=== PATIENT | male | born 1950 | race Caucasian/White ===

== ENCOUNTER 2021-04-25 02:58 | Inpatient (IN) | payer OTHER, SELFPAY ==
[2021-04-25] VITALS (25 sets, daily range): BP systolic 111–176; BP diastolic 51–98; PULSE 76–106; RESP 11–23; TEMP 36.4–36.7; O2SAT 94–100; BMI 17.8
--- NOTE | ~2021-04-25 | MR_ITS ---
EXAMINATION: MR brain/brain stem wo con DATE: 04/25/2021 17:04 INDICATION: Vertigo. TECHNIQUE: Magnetic resonance imaging (MRI) of the brain and brainstem was performed without intraven ous contrast. Sequences included sagittal and axial T1-weighted FSE, axial diffusion-weighted FS EPI, axial T2*-weighted GRE, axial T2-weighted FLAIR Propeller, and axial T2-weighted Propeller. Apparent diffusion coefficient (ADC) maps were created. COMPARISON: Brain MRI 08/24/2015, head CT 04/25/2021 FINDINGS: There is an old infarct involving the right lentiform nucleus, posterior limb right interna l capsule, and the right frontoparietal herrera radiata. There are scattered areas of nonspecific incr eased T2-weighted signal intensity in the cerebral white matter and ping, which is within normal limi ts for the patient's age. There is no intracranial hemorrhage, acute infarction, or abnormal intracra nial mass lesion. The ventricles are normal in size. There is a mucous retention cyst in right maxill ghislaine sinus. The orbits are normal. There is a small left mastoid effusion. IMPRESSION: 1. Old infarct involving right lentiform nucleus, posterior limb right internal capsule, and the righ t frontoparietal herrera radiata. Reviewed, dictated and finalized at location A. IMPRESSION: 1. Old infarct involving right lentiform nucleus, posterior limb right internal capsule, and the right frontoparietal herrera radiata.
--- NOTE | ~2021-04-25 | CT_ITS ---
EXAMINATION: CT brain wo con INDICATION: Head injury COMPARISON: 08/24/2015 TECHNIQUE: Standard unenhanced head CT. The dose-length product (DLP) was 605.33 mGy-cm. The mA was a djusted according to patient size. Iterative reconstruction technique was employed. FINDINGS: There is no acute intraparenchymal hemorrhage. No evidence of mass lesion. No evidence of a cute infarction. There is a chronic infarct involving the right lentiform nucleus and right frontopar ietal herrera radiata. An old infarct is also noted in the left caudate nucleus. There is mild periven tricular and subcortical hypodensity probably related to small vessel ischemic disease. There is mild prominence of the sulci and ventricles related to cerebral atrophy. Intracranial calcified cerebral atherosclerosis is noted. There are no extra-axial collections. There is no mass effect or midline sh ift. The orbits and soft tissues are unremarkable. There is mild mucosal thickening of the paranasal sinuses. An air-fluid level is present in the right maxillary sinus. IMPRESSION: 1. Areas of prior infarction without acute intracranial abnormality. 2. Age related findings. Reviewed, dictated and finalized at location A.
--- NOTE | ~2021-04-25 | US_ITS ---
EXAMINATION: US abdomen complete EXAM DATE: 05/01/2021 08:27 INDICATION: Abdominal pain/UTI . TECHNIQUE: Multiple grayscale and Doppler images of the complete abdomen were obtained (by a technolo gist who performed the scan) and subsequently reviewed. There is no prior study for comparison. FINDINGS: Limited exam due to patient positioning, bowel gas. Aorta not visualized. Visualized portion IVC is patent. The pancreatic head and body are normal in appearance. The pancreatic tail is not visualized. The liver has normal echogenicity and contour. There are no focal liver lesions identified. There is no evidence of intrahepatic biliary duct dilation. Portal venous flow was seen in the hepatopedal , normal direction and has normal Doppler waveform. Common bile duct measures 4 mm, which is normal. The gallbladder wall is normal in thickness, with ex pected amount of distention. No sonographic evidence of pericholecystic fluid. There is no cholelit hiases. Technologist performing exam reports patient did not demonstrate sonographic Chung's sign. Please note that this sign is less reliable in patients who have received pain medication. Right kidney: There is normal contour and echogenicity. It measures 9.6 x 6.0 x 6.1 centimeters. T here are no focal renal lesions identified. Mild hydronephrosis. Left kidney: There is normal contour and echogenicity. It measures 12.1 x 4.7 x 6.4 centimeters. T here are no focal renal lesions identified. Minimal left hydronephrosis. Unable to visualize the spleen. Bladder is moderately distended with layering proteinaceous material inside, could be blood products or debris. A right ureteral jet was identified, could not definitivel y identify a left ureteral jet. Not sure if this is significant given the bladder debris along the ur eterovesicular junctions. IMPRESSION: 1. Mild right, minimal left hydronephrosis. 2. Proteinaceous bladder dependent debris or blood products. Reviewed, dictated and finalized at location A.
--- NOTE | 2021-04-25 03:12 | ECG_ITS ---
Measurements Intervals Smiley Rate: 98 P: 70 WA: 194 QRS: -30 QRSD: 130 T: 38 QT: 366 QTc: 468 Interpretive Statements SINUS RHYTHM POSSIBLE LEFT ATRIAL ENLARGEMENT RIGHT BUNDLE BRANCH BLOCK BASELINE ARTIFACT- I, II, III, AVR, AVL, AVF, V1, V3 ABNORMAL ECG Electronically Signed On 04-25-2021 8:49:12 CDT by Giancarlo Lopez D.O.
[2021-04-25] MEDS: MECLIZINE HCL 25 MG TABLET PO ×2 (04:05→18:12)
[2021-04-25 04:09] LABS: Basophils Percent Auto 0.5 % (0.2-1.2); Eosinophils Absolute Auto 0.1 K/mm3 (0-0.3); Eosinophils Percent Auto 1.2 % (0-4.4); Hematocrit 38.9 % (42.0-52.0); Hemoglobin 13.1 g/dL (14.0-18.0); Immature Granulocyte Absolute 0.02 K/mm3 (0.00-0.031); Immature Granulocyte Percent A 0.2 % (0-0.5); Lymphocytes Percent Auto 30.6 % (18.3-44.2); Mean Corpuscular HGB Conc 33.7 g/dl (32-36); Mean Corpuscular Hemoglobin 31.8 pg (26-34); Mean Corpuscular Volume 94.4 fl (80-100); Mean Platelet Volume 9.4 fl (7.4-10.4); Monocytes Absolute Auto 0.8 K/mm3 (0.1-0.6); Monocytes Percent Auto 9.4 % (2.6-8.5); Neutrophils Absolute Auto 5.1 K/mm3 (1.3-6.7); Neutrophils Percent Auto 58.1 % (45.5-73.1); Platelet Count Result 240 k/mm3 (150-375); Red Blood Count 4.12 M/mm3 (4.6-6.20); Red Cell Distribution Width 12.7 % (11.5-14.5); White Blood Count 8.8 K/mm3 (4.5-10.0)
[2021-04-25 04:16] LABS: Add Urine Microscopic? YES; Appearance Urine Cloudy (Clear); Bacteria Urine Trace /hpf; Bilirubin Urine Negative (Negative); Blood Urine 2+ (Negative); Color Urine Yellow (Yellow); Glucose Urine UA Negative (Negative); Ketones Urine Trace mg/dL (Negative); Leukocyte Esterase Ur 3+ LEU/UL (Negative); Mucus Urine Rare /lpf; Nitrate Urine Negative (Negative); Protein Urine 2+ mg/dL (Negative); RBC Urine 21-50 /hpf (0-2); Specific Grav Ur 1.016 (1.001-1.035); Squamous Epithelial Cell Urine Occasional /hpf (Few); Urobilinogen Urine Negative mg/dL (<2.0); WBC Clumps Urine Present /HPF; WBC Urine >75 /hpf
[2021-04-25 04:21] LABS: Alanine Aminotransferase 20 U/L (4-50); Albumin Level 4.1 g/dL (3.5-5.1); Alkaline Phosphatase 58 U/L (38-126); Anion Gap 6 mmol/L (8-16); Aspartate Amino Transferase 27 U/L (17-59); Bilirubin,Total 0.7 mg/dL (0.2-1.3); Blood Urea Nitrogen 31 mg/dL (9-20); Calcium 10.2 mg/dL (8.4-10.2); Carbon Dioxide 31 mmol/L (22-30); Chloride 102 mmol/L (98-107); Estimated CRCL calculation 70 ml/min; Estimated Glomerular Filt Rate > 60; Glucose 106 mg/dL (65-110); Potassium 3.9 mmol/L (3.4-5.0); Sodium 139 mmol/L (137-145)
--- NOTE | 2021-04-25 04:39 | ED.GENADULT ---
HPI - General Adult General Chief complaint: Dizziness Stated complaint: dizzy when he rolls over Time Seen by Provider: 04/25/21 03:23 History of Present Illness HPI narrative: Patient 71-year-old gentleman who presents to emergency department with chief complaint of dizziness. Patient reports that several days ago he fell struck his head had no loss of consciousness was doing okay and today rolled over and started having a sense of his whole body spinning. Patient states symptoms are improved whenever he is not moving and reports worsened with turning his head from side to side. Patient states CABG called EMS the patient reports he normally gets around using a wheelchair patient does live independently. Related Data Home Medications Medication Instructions Recorded Confirmed amlodipine 04/25/21 atorvastatin 04/25/21 clopidogrel 04/25/21 gabapentin 04/25/21 losartan 04/25/21 metformin mg 04/25/21 ropinirole mg 04/25/21 mavleys-pvfupxqg-ahfqtt comb 04/25/21 exturrd-qcgu-smtmc-oreg-capryl cap PO 04/25/21 zolpidem 04/25/21 Allergies Allergy/AdvReac Type Severity Reaction Status Date / Time No Known Drug Allergies Allergy Unknown Other Verified 04/25/21 03:18 Review of Systems Review of Systems: A 10 system review of systems was completed on the patient and is negative except for what is stated in the HPI. Nursing and ancillary documentation was reviewed. [facility] Social History Social History Smoking status: Never smoker Alcohol intake: never Comments Prior history of stroke uses a wheelchair Exam Narrative: GENERAL: Well-appearing, well-nourished, and in no acute distress. HEAD: Normocephalic, atraumatic. EYES: PERRLA and EOMI. ENT: Nares clear, no rhinorrhea or epistaxis. Mucous membranes moist. NECK: Supple. CHEST: Clear to auscultation. No respiratory distress. HEART: Regular rate and rhythm. No murmur heard. Normal peripheral pulses. ABDOMEN: Soft, nontender, nondistended, normal active bowel sounds. EXTREMITIES: Normal range of motion. No edema. SKIN: Warm, dry, no rash. NEURO: No focal deficits. Has a baseline weakness on the left side alert and oriented x3. PSYCH: Normal mood and affect. Course Course Emergency Course: Patient was given Antivert which did help him somewhat although he still having rotational vertigo symptoms whenever he turns his head. The patient was found to have a significant UTI. The patient was given a dose of Rocephin in the ER CT head showed no evidence of acute abnormalities. Given the patient is still symptomatic and has a significant UTI the case will be discussed with the hospitalist for possible admission. Vital Signs Vital signs: Vital Signs Temperature 36.4 C 04/25/21 03:02 Pulse Rate 97 04/25/21 03:02 Respiratory Rate 20 04/25/21 03:02 Blood Pressure 153/88 H 04/25/21 03:02 Pulse Oximetry 99 04/25/21 03:02 Temperature 36.4 C 04/25/21 03:02 Pulse Rate 98 04/25/21 04:15 Respiratory Rate 23 H 04/25/21 04:45 Blood Pressure 165/90 H 04/25/21 04:31 Pulse Oximetry 100 04/25/21 04:31 Medical Decision Making Vital Signs Vital Signs: Vital Signs Temperature 36.4 C 04/25/21 03:02 Pulse Rate 97 04/25/21 03:02 Respiratory Rate 20 04/25/21 03:02 Blood Pressure 153/88 H 04/25/21 03:02 Pulse Oximetry 99 04/25/21 03:02 Temperature 36.4 C 04/25/21 03:02 Pulse Rate 98 04/25/21 04:15 Respiratory Rate 23 H 04/25/21 04:45 Blood Pressure 165/90 H 04/25/21 04:31 Pulse Oximetry 100 04/25/21 04:31 Lab Data Result diagrams: 04/25/21 04:04 04/25/21 04:04 Labs: Lab Results 04/25/21 04/25/21 04/25/21 Range/Units 04:04 04:04 04:04 WBC 8.8 (4.5-10.0) K/mm3 RBC 4.12 L (4.6-6.20) M/mm3 Hgb 13.1 L (14.0-18.0) g/dL Hct 38.9 L (42.0-52.0) % MCV 94.4 (80-100) fl MCH 31.
--- NOTE | 2021-04-25 05:42 | PC.NURSE ---
Patient was assisted to sit up in bed to test if he was dizzy. Patient stated the dizziness was still there, had not improved. ERP aware.
--- NOTE | 2021-04-25 08:09 | ADMGEN ---
Addendum entered by Loida Rose RN 04/25/21 08:45: pt has medical cards and clothing at bedside Original Note: This patient, Parish Keita, was admitted to 3 [facility] Surg Room 317-02. Patient/family oriented to hospital policies and general routines including ID bracelet, bed and alarms, visiting hours, pain management, procedures, bathroom and other care routines, personal items, smoking policy, room service/diet, and visiting hours. PT REQUIRED TRANSFER ASSIT X2 FROM STRETCHER TO BED. Information on how to activate the Rapid Response Team has been discussed. Patient/Family are encouraged to report perceived risks to care and to ask questions if they do not understand what they are told or what they should do.
[2021-04-25] MEDS: SODIUM CHLORIDE 0.9% IV 1,000 ML 125 ML IV CONT (08:56)
--- NOTE | 2021-04-25 09:13 | PM.IMHP ---
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 Patient had suffered a fall while he was trying to transfer from bed to chair heat his head on the way down but there was no loss of consciousness he managed to called EMS who came to the house and place him back in the chair there was no noted injury at that time and patient's vitals were within normal limits as well. The patient was brought to the emergency room via EMS after while he was reaching down while in bed bed trying to place is urine on the floor had a sudden onset of violent vertigo he trying is staying stable by repositioning back in bed but when he tried to move again had the same episode. Patient states that has been quite fine has had no issues lately no loss of consciousness, no syncope ,no near-syncope, no nausea, no vomiting, no fever, no chills, no rigors, no cough, no sputum production, he did notice increased frequency urinating. Preliminary workup was significant for urinalysis with numerous wbc's, a CT of the head was significant for old stroke, rest of workup was pretty much unrevealing. Review of Systems Review of Systems: Fall, vertigo, urinary frequency. Constitutional: Constitutional: Denies chills, Denies fatigue, Denies fever(s), Denies lethargy, Denies malaise and Denies weakness Eyes: Comments: Patient only see samm ENT: Denies dysphagia, Reports vertigo, Denies ear discharge, Denies headache(s), Denies nasal congestion, Denies nasal discharge, Denies nasal obstruction and Denies odynophagia Cardiovascular: Cardiovascular: Denies irregular heart rhythm, Denies lightheadedness, Denies radiating jaw, neck or arm pain, Denies palpitations, Denies dyspnea, Denies dyspnea on exertion and Denies orthopnea Respiratory: Respiratory: Denies cough and Denies dyspnea Gastrointestinal: Gastrointestinal: Denies abdominal pain, Denies dyspepsia, Denies heartburn, Denies diarrhea, Denies nausea and Denies vomiting Genitourinary: Genitourinary: Reports urinary frequency Musculoskeletal: Musculoskeletal: Denies arthralgias Integumentary/Breasts: Skin/Breast: Reports system reviewed and no additional complaints, except as docu Neurologic: Reports vertigo Psychiatric: Psychiatric: Reports no additional psychiatric complaints Endocrine: Endocrine: Reports no additional endocrine complaints Hematologic/Lymphatic: Hematologic/Lymphatic: Reports no additional hematologic/lymphatic complaints Allergic/Immunologic: Allergic/Immunologic: Reports no additional allergic/immunologic complaints [facility] Social History Social History Smoking status: Never smoker Alcohol intake: never Substance use: never Substance use type: does not use Spiritual care concerns: No Meds Home Medications and Allergies Home Medications Medication Instructions Recorded Confirmed Type amlodipine [Norvasc] 10 mg PO DAILY 04/25/21 04/25/21 History atorvastatin 20 mg PO DAILY 04/25/21 04/25/21 History cefdinir 300 mg PO Q12H #20 cap 04/25/21 Rx clopidogrel 75 mg PO DAILY 04/25/21 04/25/21 History gabapentin 300 mg PO DAILY 04/25/21 04/25/21 History losartan 100 mg PO DAILY 04/25/21 04/25/21 History meclizine 25 mg PO TID PRN #30 tablet 04/25/21 Rx metformin 500 mg PO DAILY 04/25/21 04/25/21 History ropinirole 2 mg PO DAILY 04/25/21 04/25/21 History mdsxfsm-znzcczua-qmuhdq comb 1 tab-cap PO DAILY 04/25/21 04/25/21 History rnpwwlk-iafw-cpeqt-oreg-capryl 1 cap PO 04/25/21 History zolpidem 5 mg PO
[2021-04-25] MEDS: SIMETHICONE 80 MG TAB.CHEW PO (21:09)
[2021-04-26] MEDS: SODIUM CHLORIDE 0.9% IV 1,000 ML 125 ML IV CONT (00:35)
[2021-04-26] MEDS: ACETAMINOPHEN 325 MG TABLET 650 MG PO (00:41)
[2021-04-26] MEDS: HYOSCYAMINE SULFATE 0.125 MG TABLET PO (00:41)
[2021-04-26 05:41] VITALS: BP 161/78; PULSE 84; RESP 18; TEMP 36.1; O2SAT 98
[2021-04-26] MEDS: SIMETHICONE 80 MG TAB.CHEW PO ×2 (05:48→18:28)
[2021-04-26 07:50] LABS: Glucose Point of Care 108 mg/dl (65-105)
[2021-04-26] MEDS: amLODIPine BESYLATE 5 MG TABLET 10 MG PO (09:35)
[2021-04-26] MEDS: ATORVASTATIN 20 MG TABLET PO (09:36)
[2021-04-26] MEDS: GABAPENTIN 300 MG CAPSULE PO (09:36)
[2021-04-26] MEDS: CLOPIDOGREL BISULFATE 75 MG TABLET PO (09:36)
[2021-04-26] MEDS: rOPINIRole HCL 1 MG TABLET 2 MG PO (09:36)
[2021-04-26] MEDS: MECLIZINE HCL 25 MG TABLET PO ×2 (09:36→18:34)
[2021-04-26] MEDS: LOSARTAN POTASSIUM 100 MG TABLET PO (09:36)
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
[2021-04-26 10:09] VITALS: BMI 17.8
[2021-04-26 12:11] LABS: Glucose Point of Care 135 mg/dl (65-105)
[2021-04-26 15:51] VITALS: BP 79/50; PULSE 75; RESP 16; TEMP 36.7; O2SAT 96
[2021-04-26 16:56] LABS: Glucose Point of Care 186 mg/dl (65-105)
[2021-04-26 18:39] VITALS: BP 92/52
[2021-04-26 19:30] VITALS: BP 98/58
[2021-04-26] MEDS: ZOLPIDEM TARTRATE (*CRX) 5 MG TABLET PO (21:04)
[2021-04-26 21:50] LABS: Glucose Point of Care 124 mg/dl (65-105)
[2021-04-26 22:00] VITALS: BP 102/61; PULSE 62; RESP 18; TEMP 36.3; O2SAT 96
[2021-04-27] MEDS: SIMETHICONE 80 MG TAB.CHEW PO ×2 (01:36→08:20)
[2021-04-27] MEDS: SODIUM CHLORIDE 0.9% IV 1,000 ML 125 ML IV CONT ×2 (02:31→18:27)
[2021-04-27] MEDS: HYOSCYAMINE SULFATE 0.125 MG TABLET PO ×4 (03:45→23:36)
[2021-04-27 06:00] VITALS: BP 110/66; PULSE 62; RESP 16; TEMP 36.7; O2SAT 95
[2021-04-27 06:22] LABS: Basophils Absolute Auto 0.1 K/mm3 (0.0-0.1); Basophils Percent Auto 0.4 % (0.2-1.2); Eosinophils Absolute Auto 0.2 K/mm3 (0-0.3); Eosinophils Percent Auto 1.7 % (0-4.4); Hemoglobin 14.2 g/dL (14.0-18.0); Immature Granulocyte Absolute 0.05 K/mm3 (0.00-0.031); Immature Granulocyte Percent A 0.4 % (0-0.5); Lymphocytes Absolute Auto 3.17 K/mm3 (0.9-3.2); Lymphocytes Percent Auto 23.7 % (18.3-44.2); Mean Corpuscular Hemoglobin 31.2 pg (26-34); Mean Corpuscular Volume 94.5 fl (80-100); Mean Platelet Volume 9.9 fl (7.4-10.4); Monocytes Absolute Auto 1.1 K/mm3 (0.1-0.6); Monocytes Percent Auto 7.9 % (2.6-8.5); Neutrophils Absolute Auto 8.8 K/mm3 (1.3-6.7); Neutrophils Percent Auto 65.9 % (45.5-73.1); Platelet Count Result 263 k/mm3 (150-375); Red Blood Count 4.55 M/mm3 (4.6-6.20); Red Cell Distribution Width 12.6 % (11.5-14.5); White Blood Count 13.4 K/mm3 (4.5-10.0)
[2021-04-27 06:30] LABS: Alanine Aminotransferase 21 U/L (4-50); Albumin Level 3.8 g/dL (3.5-5.1); Alkaline Phosphatase 68 U/L (38-126); Anion Gap 11 mmol/L (8-16); Aspartate Amino Transferase 25 U/L (17-59); Bilirubin,Total 0.7 mg/dL (0.2-1.3); Blood Urea Nitrogen 22 mg/dL (9-20); Calcium 8.9 mg/dL (8.4-10.2); Carbon Dioxide 21 mmol/L (22-30); Chloride 110 mmol/L (98-107); Estimated CRCL calculation 83 ml/min; Estimated Glomerular Filt Rate > 60; Glucose 115 mg/dL (65-110); Magnesium 2.2 mg/dL (1.6-2.3); Potassium 4.2 mmol/L (3.4-5.0); Sodium 142 mmol/L (137-145)
[2021-04-27] MEDS: ACETAMINOPHEN 325 MG TABLET 650 MG PO (08:19)
[2021-04-27] MEDS: ENOXAPARIN 40 MG/0.4 ML SYRINGE SUB-Q (08:19)
[2021-04-27] MEDS: rOPINIRole HCL 1 MG TABLET 2 MG PO (08:20)
[2021-04-27] MEDS: GABAPENTIN 300 MG CAPSULE PO (08:20)
[2021-04-27] MEDS: MECLIZINE HCL 25 MG TABLET PO ×2 (08:20→18:26)
[2021-04-27] MEDS: ATORVASTATIN 20 MG TABLET PO (08:21)
[2021-04-27] MEDS: CLOPIDOGREL BISULFATE 75 MG TABLET PO (08:21)
[2021-04-27 08:43] LABS: Glucose Point of Care 118 mg/dl (65-105)
[2021-04-27 11:50] LABS: Glucose Point of Care 129 mg/dl (65-105)
--- NOTE | 2021-04-27 12:06 | PCOTNOTE ---
Patient refused OT evaluation this AM due to high pain and vertigo. He answered prompts related to prior level of function, yet declined any movement. OT evaluation to be attempted tomorrow 04/27/21.
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
[2021-04-27 14:00] VITALS: BP 153/76; PULSE 93; RESP 14; TEMP 36.6; O2SAT 96
[2021-04-27] MEDS: HYDROcodone/acetaminophen (*CRX) 5-325 MG TABLET 1 TAB PO ×2 (15:58→23:34)
[2021-04-27 17:20] LABS: Glucose Point of Care 170 mg/dl (65-105)
[2021-04-27] MEDS: amLODIPine BESYLATE 5 MG TABLET 10 MG PO (18:23)
[2021-04-27 21:42] VITALS: O2SAT 94
[2021-04-27 22:00] VITALS: BP 109/48; PULSE 81; RESP 99; TEMP 36.2; O2SAT 18
[2021-04-27 22:34] LABS: Glucose Point of Care 153 mg/dl (65-105)
[2021-04-28] MEDS: SODIUM CHLORIDE 0.9% IV 1,000 ML 125 ML IV CONT ×4 (02:24→21:11)
[2021-04-28 06:00] VITALS: BP 147/66; PULSE 102; RESP 20; TEMP 35.9; O2SAT 98
[2021-04-28 06:24] LABS: Basophils Absolute Auto 0.1 K/mm3 (0.0-0.1); Basophils Percent Auto 0.4 % (0.2-1.2); Eosinophils Absolute Auto 0.1 K/mm3 (0-0.3); Hematocrit 41.1 % (42.0-52.0); Hemoglobin 13.6 g/dL (14.0-18.0); Immature Granulocyte Absolute 0.05 K/mm3 (0.00-0.031); Immature Granulocyte Percent A 0.4 % (0-0.5); Lymphocytes Absolute Auto 2.16 K/mm3 (0.9-3.2); Lymphocytes Percent Auto 17.2 % (18.3-44.2); Mean Corpuscular HGB Conc 33.1 g/dl (32-36); Mean Corpuscular Hemoglobin 31.2 pg (26-34); Mean Corpuscular Volume 94.3 fl (80-100); Mean Platelet Volume 9.9 fl (7.4-10.4); Monocytes Absolute Auto 0.9 K/mm3 (0.1-0.6); Monocytes Percent Auto 7.1 % (2.6-8.5); Neutrophils Absolute Auto 9.3 K/mm3 (1.3-6.7); Neutrophils Percent Auto 73.9 % (45.5-73.1); Platelet Count Result 240 k/mm3 (150-375); Red Blood Count 4.36 M/mm3 (4.6-6.20); Red Cell Distribution Width 12.4 % (11.5-14.5); White Blood Count 12.5 K/mm3 (4.5-10.0)
[2021-04-28 06:34] LABS: Alanine Aminotransferase 25 U/L (4-50); Albumin Level 3.4 g/dL (3.5-5.1); Alkaline Phosphatase 57 U/L (38-126); Anion Gap 8 mmol/L (8-16); Aspartate Amino Transferase 25 U/L (17-59); Bilirubin,Total 0.5 mg/dL (0.2-1.3); Blood Urea Nitrogen 18 mg/dL (9-20); Calcium 8.2 mg/dL (8.4-10.2); Carbon Dioxide 22 mmol/L (22-30); Chloride 109 mmol/L (98-107); Estimated CRCL calculation 83 ml/min; Estimated Glomerular Filt Rate > 60; Glucose 138 mg/dL (65-110); Phosphorus 1.7 mg/dL (2.5-4.5); Potassium 4.2 mmol/L (3.4-5.0); Sodium 139 mmol/L (137-145)
[2021-04-28 07:44] LABS: Glucose Point of Care 123 mg/dl (65-105)
[2021-04-28 08:00] VITALS: PULSE 102; RESP 20; O2SAT 98
[2021-04-28] MEDS: SIMETHICONE 80 MG TAB.CHEW PO ×2 (08:01→16:56)
[2021-04-28] MEDS: ATORVASTATIN 20 MG TABLET PO (08:02)
[2021-04-28] MEDS: ENOXAPARIN 40 MG/0.4 ML SYRINGE SUB-Q (08:02)
[2021-04-28] MEDS: CLOPIDOGREL BISULFATE 75 MG TABLET PO (08:02)
[2021-04-28] MEDS: ONDANSETRON INJ 4 MG/2 ML VIAL IV PUSH (08:02)
[2021-04-28] MEDS: PROCHLORPERAZINE MALEATE 5 MG TABLET 10 MG PO (08:02)
[2021-04-28] MEDS: GABAPENTIN 300 MG CAPSULE PO (08:02)
[2021-04-28] MEDS: rOPINIRole HCL 1 MG TABLET 2 MG PO (08:02)
[2021-04-28] MEDS: TRIAMTERENE 37.5 MG/HCTZ 25 MG (MAXZIDE) TABLET 1 TAB PO (08:03)
[2021-04-28] MEDS: LOSARTAN POTASSIUM 100 MG TABLET PO (08:03)
[2021-04-28] MEDS: ALPRAZolam (*CRX) 0.125 MG TABLET PO (08:05)
[2021-04-28] MEDS: HYDROcodone/acetaminophen (*CRX) 5-325 MG TABLET 1 TAB PO ×2 (08:05→16:55)
[2021-04-28] MEDS: HYOSCYAMINE SULFATE 0.125 MG TABLET PO (08:06)
[2021-04-28] MEDS: MECLIZINE HCL 25 MG TABLET PO ×2 (09:00→16:55)
[2021-04-28] MEDS: amLODIPine BESYLATE 5 MG TABLET 10 MG PO (09:26)
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
[2021-04-28 11:51] LABS: Glucose Point of Care 136 mg/dl (65-105)
--- NOTE | 2021-04-28 12:44 | PCPTNOTE ---
attempted PT treatment, pt refused therapy. Stated he was tired, had run in with nurse and does not want to do anything right now.
[2021-04-28] MEDS: FAMOTIDINE 20 MG TABLET PO (13:55)
[2021-04-28 14:00] VITALS: BP 105/59; PULSE 79; RESP 18; TEMP 36.6; O2SAT 96
[2021-04-28 20:00] VITALS: PULSE 73; RESP 18; O2SAT 97
[2021-04-28] MEDS: diphenhydrAMINE HCl CAP 25 MG CAPSULE PO (21:02)
[2021-04-28 21:25] LABS: Glucose Point of Care 162 mg/dl (65-105)
[2021-04-28 22:00] VITALS: BP 91/40; PULSE 73; RESP 18; TEMP 36.2; O2SAT 97
[2021-04-29] MEDS: HYDROcodone/acetaminophen (*CRX) 5-325 MG TABLET 1 TAB PO ×3 (02:47→21:14)
[2021-04-29] MEDS: HYOSCYAMINE SULFATE 0.125 MG TABLET PO ×2 (02:47→08:27)
[2021-04-29] MEDS: SIMETHICONE 80 MG TAB.CHEW PO ×3 (02:47→15:12)
[2021-04-29] MEDS: SODIUM CHLORIDE 0.9% IV 1,000 ML 125 ML IV CONT ×2 (04:10→15:10)
[2021-04-29 06:00] VITALS: BP 126/69; PULSE 96; RESP 18; TEMP 36.1; O2SAT 98
[2021-04-29 06:22] LABS: Basophils Absolute Auto 0.1 K/mm3 (0.0-0.1); Basophils Percent Auto 0.4 % (0.2-1.2); Eosinophils Absolute Auto 0.2 K/mm3 (0-0.3); Eosinophils Percent Auto 1.3 % (0-4.4); Hematocrit 39.7 % (42.0-52.0); Immature Granulocyte Absolute 0.04 K/mm3 (0.00-0.031); Immature Granulocyte Percent A 0.3 % (0-0.5); Lymphocytes Absolute Auto 1.95 K/mm3 (0.9-3.2); Lymphocytes Percent Auto 15.1 % (18.3-44.2); Mean Corpuscular HGB Conc 32.7 g/dl (32-36); Mean Corpuscular Hemoglobin 31.1 pg (26-34); Mean Platelet Volume 9.9 fl (7.4-10.4); Monocytes Percent Auto 7.5 % (2.6-8.5); Neutrophils Absolute Auto 9.8 K/mm3 (1.3-6.7); Neutrophils Percent Auto 75.4 % (45.5-73.1); Platelet Count Result 250 k/mm3 (150-375); Red Blood Count 4.18 M/mm3 (4.6-6.20); Red Cell Distribution Width 12.7 % (11.5-14.5); White Blood Count 12.9 K/mm3 (4.5-10.0)
[2021-04-29 06:46] LABS: Alanine Aminotransferase 21 U/L (4-50); Albumin Level 3.3 g/dL (3.5-5.1); Alkaline Phosphatase 59 U/L (38-126); Anion Gap 5 mmol/L (8-16); Aspartate Amino Transferase 24 U/L (17-59); Bilirubin,Total 0.7 mg/dL (0.2-1.3); Blood Urea Nitrogen 15 mg/dL (9-20); Calcium 8.2 mg/dL (8.4-10.2); Carbon Dioxide 26 mmol/L (22-30); Chloride 107 mmol/L (98-107); Estimated CRCL calculation 98 ml/min; Estimated Glomerular Filt Rate > 60; Glucose 133 mg/dL (65-110); Phosphorus 1.6 mg/dL (2.5-4.5); Potassium 4.1 mmol/L (3.4-5.0); Sodium 138 mmol/L (137-145)
[2021-04-29 06:55] LABS: Glucose Point of Care 118 mg/dl (65-105)
[2021-04-29 07:50] LABS: Glucose Point of Care 107 mg/dl (65-105)
[2021-04-29 08:00] VITALS: PULSE 96; RESP 18; O2SAT 98
[2021-04-29] MEDS: ENOXAPARIN 40 MG/0.4 ML SYRINGE SUB-Q (08:20)
[2021-04-29] MEDS: amLODIPine BESYLATE 5 MG TABLET 10 MG PO (08:21)
[2021-04-29] MEDS: GABAPENTIN 300 MG CAPSULE PO (08:21)
[2021-04-29] MEDS: rOPINIRole HCL 1 MG TABLET 2 MG PO (08:21)
[2021-04-29] MEDS: PROCHLORPERAZINE MALEATE 5 MG TABLET 10 MG PO (08:21)
[2021-04-29] MEDS: ATORVASTATIN 20 MG TABLET PO (08:21)
[2021-04-29] MEDS: LOSARTAN POTASSIUM 100 MG TABLET PO (08:21)
[2021-04-29] MEDS: CLOPIDOGREL BISULFATE 75 MG TABLET PO (08:21)
[2021-04-29] MEDS: TRIAMTERENE 37.5 MG/HCTZ 25 MG (MAXZIDE) TABLET 1 TAB PO (08:22)
[2021-04-29] MEDS: ONDANSETRON INJ 4 MG/2 ML VIAL IV PUSH (08:27)
[2021-04-29] MEDS: ACETAMINOPHEN 325 MG TABLET 650 MG PO (08:28)
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
[2021-04-29] MEDS: MECLIZINE HCL 25 MG TABLET PO ×2 (09:05→16:26)
[2021-04-29 12:01] LABS: Glucose Point of Care 152 mg/dl (65-105)
[2021-04-29 14:36] VITALS: BP 100/50; PULSE 86; RESP 16; TEMP 36.9; O2SAT 95
[2021-04-29 16:56] LABS: Glucose Point of Care 127 mg/dl (65-105)
[2021-04-29 22:00] VITALS: BP 112/60; PULSE 91; RESP 18; TEMP 36.8; O2SAT 96
[2021-04-30] MEDS: SIMETHICONE 80 MG TAB.CHEW PO ×4 (02:39→20:21)
[2021-04-30] MEDS: HYDROcodone/acetaminophen (*CRX) 5-325 MG TABLET 1 TAB PO ×3 (02:51→20:21)
[2021-04-30 07:18] LABS: Basophils Absolute Auto 0.1 K/mm3 (0.0-0.1); Basophils Percent Auto 0.4 % (0.2-1.2); Eosinophils Absolute Auto 0.2 K/mm3 (0-0.3); Hematocrit 38.2 % (42.0-52.0); Hemoglobin 12.5 g/dL (14.0-18.0); Immature Granulocyte Absolute 0.06 K/mm3 (0.00-0.031); Immature Granulocyte Percent A 0.5 % (0-0.5); Lymphocytes Absolute Auto 2.34 K/mm3 (0.9-3.2); Mean Corpuscular HGB Conc 32.7 g/dl (32-36); Mean Corpuscular Hemoglobin 30.9 pg (26-34); Mean Corpuscular Volume 94.6 fl (80-100); Mean Platelet Volume 10.1 fl (7.4-10.4); Monocytes Percent Auto 8.7 % (2.6-8.5); Neutrophils Percent Auto 68.4 % (45.5-73.1); Platelet Count Result 243 k/mm3 (150-375); Red Blood Count 4.04 M/mm3 (4.6-6.20); Red Cell Distribution Width 12.7 % (11.5-14.5); White Blood Count 11.7 K/mm3 (4.5-10.0)
[2021-04-30 07:27] LABS: Alanine Aminotransferase 26 U/L (4-50); Albumin Level 3.2 g/dL (3.5-5.1); Alkaline Phosphatase 63 U/L (38-126); Anion Gap 6 mmol/L (8-16); Aspartate Amino Transferase 27 U/L (17-59); Bilirubin,Total 0.6 mg/dL (0.2-1.3); Blood Urea Nitrogen 17 mg/dL (9-20); Calcium 8.2 mg/dL (8.4-10.2); Carbon Dioxide 26 mmol/L (22-30); Chloride 106 mmol/L (98-107); Estimated CRCL calculation 83 ml/min; Estimated Glomerular Filt Rate > 60; Glucose 119 mg/dL (65-110); Magnesium 2.1 mg/dL (1.6-2.3); Phosphorus 2.1 mg/dL (2.5-4.5); Sodium 138 mmol/L (137-145)
[2021-04-30 08:00] VITALS: BP 130/66; PULSE 82; RESP 18; TEMP 36.2; O2SAT 98
[2021-04-30 08:15] LABS: Glucose Point of Care 123 mg/dl (65-105)
[2021-04-30] MEDS: ENOXAPARIN 40 MG/0.4 ML SYRINGE SUB-Q (09:03)
[2021-04-30] MEDS: LOSARTAN POTASSIUM 100 MG TABLET PO (09:03)
[2021-04-30] MEDS: ATORVASTATIN 20 MG TABLET PO (09:04)
[2021-04-30] MEDS: GABAPENTIN 300 MG CAPSULE PO (09:04)
[2021-04-30] MEDS: TRIAMTERENE 37.5 MG/HCTZ 25 MG (MAXZIDE) TABLET 1 TAB PO (09:04)
[2021-04-30] MEDS: CLOPIDOGREL BISULFATE 75 MG TABLET PO (09:04)
[2021-04-30] MEDS: amLODIPine BESYLATE 5 MG TABLET 10 MG PO (09:04)
[2021-04-30] MEDS: rOPINIRole HCL 1 MG TABLET 2 MG PO (09:04)
[2021-04-30] MEDS: MECLIZINE HCL 25 MG TABLET PO ×2 (09:10→16:38)
[2021-04-30] MEDS: HYOSCYAMINE SULFATE 0.125 MG TABLET PO ×2 (09:11→22:18)
[2021-04-30 12:17] LABS: Glucose Point of Care 160 mg/dl (65-105)
--- NOTE | 2021-04-30 13:20 | WPDNEURCNPN ---
Assessment and Plan Additional Plan canalopathy with recurrent dizziness, with initial CT scan revealing chronic infarct involving the right lentiform nucleus right frontoparietal coronal radiata and old infarct in the left caudate nucleus in addition to mild periventricular and subcortical hypodensity related to small vessel ischemic disease also prominent of the sulci and ventricles but not consistent with the normal pressure hydrocephalus, and MRI of the brain Prieb documenting old infarct involving the right lentiform nucleus posterior limb of the right internal capsule and right frontoparietal coronal radiata, routine lab with protein urea leukocyte esterase 3+ with RBCs 21 to 50 and wbc's more than 75, all the medications reviewed and to be continued as such no further intervention is necessary Consult date: 04/30/21 HPI: Parish Keita is a 71 year old male has been admitted to the hospital through the emergency room for the complaints of sudden violent vertigo when he was reaching down while in bed trying to place his urine on the floor he had the same episode when he tried to move again he did not become unconscious developed no nausea or vomiting initial evaluation in the emergency room revealed the abnormal you a and CT scan of the head revealed old stroke. Patient has ongoing history of 1. Hypertension 2. Bilateral cataract with resultant nearsightedness and only seeing that shades. He lives by himself and a friend comes to every other week to check on him . patient by history is never smoker, does not use any substance, and has been taking amlodipine 10 mg daily, atorvastatin 20 mg daily, clopidogrel 75 mg daily, losartan 100 mg daily, metformin 500 mg p.o. daily, ropinirole 2 mg daily and meclizine 25 mg t.i.d. on p.r.n. basis Review of Systems Review of Systems: All systems reviewed & are unremarkable except as noted in HPI and below PMFSH Social History Social History Smoking status: Never smoker Alcohol intake: never Substance use: never Substance use type: does not use Spiritual care concerns: No Meds Home Medications and Allergies Home Medications Medication Instructions Recorded Confirmed Type amlodipine [Norvasc] 10 mg PO DAILY 04/25/21 04/25/21 History atorvastatin 20 mg PO DAILY 04/25/21 04/25/21 History cefdinir 300 mg PO Q12H #20 cap 04/25/21 Rx clopidogrel 75 mg PO DAILY 04/25/21 04/25/21 History gabapentin 300 mg PO DAILY 04/25/21 04/25/21 History losartan 100 mg PO DAILY 04/25/21 04/25/21 History meclizine 25 mg PO TID PRN #30 tablet 04/25/21 Rx metformin 500 mg PO DAILY 04/25/21 04/25/21 History ropinirole 2 mg PO DAILY 04/25/21 04/25/21 History ollthdb-tfdjweev-jumqli comb 1 tab-cap PO DAILY 04/25/21 04/25/21 History yrlbbzn-moea-elcge-oreg-capryl 1 cap PO 04/25/21 History zolpidem 5 mg PO DAILY 04/25/21 04/25/21 History Allergies Allergy/AdvReac Type Severity Reaction Status Date / Time No Known Drug Allergies Allergy Unknown Other Verified 04/25/21 08:43 Vital Signs Vital Signs - 24 hr 04/29/21 14:36 04/29/21 22:00 04/30/21 08:00 Temperature 36.9 C 36.8 C 36.2 C L Pulse Rate 86 91 82 Respiratory Rate 16 18 18 Blood Pressure 100/50 L 112/60 130/66 Pulse Oximetry 95 96 98 Exam Narrative: revealed him to be awake alert cooperative in no obvious acute distress except the generalized poor hygiene, head normocephalic with no cranial bruit ear nose throat examination normal, neck is supple with no meningeal signs no cervical bruit no thyromegaly no lymphadenopathy, heart regular with no murmur, lungs clear with no rhonchi or crepitations, abdomen is soft with no organomegaly, neurologically patient is awake alert extraocular movements are full with no nystagmus facial sensation intact face symmetrical tongue midline uvula midline motor examination revealed him to have left doyle plegia with hyperreflexia upgoing plantar response on
[2021-04-30 14:00] VITALS: BP 115/61; PULSE 86; RESP 18; TEMP 36.5; O2SAT 96
--- NOTE | 2021-04-30 15:09 | PCOTNOTE ---
Due to decreased participation in therapy, pt has been downgraded to 2-3 days/wk for Occupational therapy tx, with the OTR in agreement with this change in frequency. When pt has increased participation, pt can be upgraded for further therapy tx. RN was notified of this change and is in agreement with it as well.
[2021-04-30] MEDS: POTASSIUM/PHOSPHORUS/SODIUM 1.5 GM PACKET 1 PACKET PO (16:35)
[2021-04-30 17:17] LABS: Glucose Point of Care 156 mg/dl (65-105)
--- NOTE | 2021-04-30 19:54 | PM.IMPN ---
Progress Note: A&P Assessment and Plan (1) Malnourished: Qualifiers: Malnutrition type: protein-calorie malnutrition Protein-calorie malnutrition severity: moderate Qualified Code(s): E44.0 - Moderate protein-calorie malnutrition Code(s): E46 - Unspecified protein-calorie malnutrition Status: Acute (2) Wheelchair bound: Code(s): Z99.3 - Dependence on wheelchair Status: Acute (3) Blindness and low vision: Code(s): H54.10 - Blindness, one eye, low vision other eye, unspecified eyes Status: Acute (4) Hemiplegia affecting left nondominant side: Qualifiers: Hemiplegia type: unspecified type Hemiplegia etiology: unspecified etiology Qualified Code(s): G81.94 - Hemiplegia, unspecified affecting left nondominant side Code(s): G81.94 - Hemiplegia, unspecified affecting left nondominant side Status: Acute (5) Benign paroxysmal positional vertigo: Qualifiers: Laterality: unspecified laterality Qualified Code(s): H81.10 - Benign paroxysmal vertigo, unspecified ear Code(s): H81.10 - Benign paroxysmal vertigo, unspecified ear Status: Acute (6) Acute UTI: Code(s): N39.0 - Urinary tract infection, site not specified Status: Acute (7) Leukocytosis: Qualifiers: Leukocytosis type: unspecified Qualified Code(s): D72.829 - Elevated white blood cell count, unspecified Code(s): D72.829 - Elevated white blood cell count, unspecified Status: Acute (8) Anemia: Qualifiers: Anemia type: unspecified type Qualified Code(s): D64.9 - Anemia, unspecified Code(s): D64.9 - Anemia, unspecified Status: Acute (9) Hypophosphatemia: Code(s): E83.39 - Other disorders of phosphorus metabolism Status: Acute Additional Plan Will order ultrasound abdomen for continued suprapubic tenderness Will discontinue hydrochlorothiazide and triamterene Can obtain CT abdomen pelvis ultrasound abdomen is negative Watch for fever Continue antibiotics however urine cultures only shown normal amanda Time Spent With Patient Time with patient: 15 - 25 minutes Subjective Date/time seen: 04/30/21 19:54 Interval history: 71-year-old male with past medical history significant for hypertension, bilateral cataracts which legal blindness and prior history of stroke presented status post fall. He is being managed as a case of UTI and BPPV with concerns for Meniere's disease. In addition he also has concerns for protein calorie malnutrition and severe self neglect. He is to be seen by PT and OT after which possible disposition would be established. Review of Systems Review of Systems: A 10 point review of system was conducted which was otherwise negative Exam Const: General: cooperative HENMT: Head: normal to inspection Ears: external ears normal Face and sinus: normal facial exam Eyes: Other: Legally blind Neck: Neck: normal visual inspection and full ROM Chest: Chest palpation & inspection: normal inspection of the chest Resp: Effort & Inspection: normal respiratory effort Auscultation: clear to auscultation bilaterally Cardio: Jugular venous distension: no JVD Palpation: normal PMI Rate: regular rate Rhythm: regular rhythm GI: Inspection: normal to inspection GI Palp: Yes abdominal tenderness, Yes Soft to palpation, Yes Tenderness to palpation present (GI) and Yes Guarding due to palpation present (GI) Auscultation: normal bowel sounds : General: Yes bimanual renal exam normal bilaterally Other: Suprapubic tenderness Back/Spine/Pelvis: Back: no CVA tenderness Skin: General skin exam: normal color Neuro: General: patient oriented x3 Psych: Appearance: disheveled Objective Data Vital Signs Vital Signs: Vital Signs - 24 hr 04/29/21 22:00 04/30/21 08:00 04/30/21 14:00 Temperature 98.3 F 97.2 F L 97.7 F Pulse Rate 91 82 86 Respiratory Rate 18 18 18 Blood Pressu
[2021-04-30 22:00] VITALS: BP 118/61; PULSE 87; RESP 16; TEMP 36.6; O2SAT 97
[2021-05-01] MEDS: HYDROcodone/acetaminophen (*CRX) 5-325 MG TABLET 1 TAB PO ×2 (02:15→09:13)
[2021-05-01] MEDS: SIMETHICONE 80 MG TAB.CHEW PO ×4 (02:15→20:05)
[2021-05-01 06:00] VITALS: BP 128/70; PULSE 83; RESP 16; TEMP 36.4; O2SAT 98
[2021-05-01 06:22] LABS: Basophils Absolute Auto 0.1 K/mm3 (0.0-0.1); Basophils Percent Auto 0.5 % (0.2-1.2); Eosinophils Absolute Auto 0.3 K/mm3 (0-0.3); Eosinophils Percent Auto 2.5 % (0-4.4); Hematocrit 35.3 % (42.0-52.0); Hemoglobin 11.8 g/dL (14.0-18.0); Immature Granulocyte Absolute 0.04 K/mm3 (0.00-0.031); Immature Granulocyte Percent A 0.4 % (0-0.5); Lymphocytes Absolute Auto 2.89 K/mm3 (0.9-3.2); Lymphocytes Percent Auto 29.3 % (18.3-44.2); Mean Corpuscular HGB Conc 33.4 g/dl (32-36); Mean Corpuscular Hemoglobin 30.7 pg (26-34); Mean Corpuscular Volume 91.9 fl (80-100); Mean Platelet Volume 9.8 fl (7.4-10.4); Monocytes Absolute Auto 0.9 K/mm3 (0.1-0.6); Monocytes Percent Auto 8.9 % (2.6-8.5); Neutrophils Absolute Auto 5.7 K/mm3 (1.3-6.7); Neutrophils Percent Auto 58.4 % (45.5-73.1); Platelet Count Result 243 k/mm3 (150-375); Red Blood Count 3.84 M/mm3 (4.6-6.20); Red Cell Distribution Width 12.6 % (11.5-14.5); White Blood Count 9.9 K/mm3 (4.5-10.0)
[2021-05-01 06:32] LABS: Alanine Aminotransferase 34 U/L (4-50); Albumin Level 3.1 g/dL (3.5-5.1); Alkaline Phosphatase 58 U/L (38-126); Anion Gap 4 mmol/L (8-16); Aspartate Amino Transferase 28 U/L (17-59); Bilirubin,Total 0.6 mg/dL (0.2-1.3); Blood Urea Nitrogen 27 mg/dL (9-20); Calcium 8.5 mg/dL (8.4-10.2); Carbon Dioxide 30 mmol/L (22-30); Chloride 103 mmol/L (98-107); Estimated CRCL calculation 83 ml/min; Estimated Glomerular Filt Rate > 60; Glucose 113 mg/dL (65-110); Magnesium 2.2 mg/dL (1.6-2.3); Phosphorus 2.7 mg/dL (2.5-4.5); Potassium 4.4 mmol/L (3.4-5.0); Sodium 137 mmol/L (137-145)
[2021-05-01 07:02] LABS: Thyroid Stimulating Hormone Reflex 0.656 uIU/mL (0.465-4.68)
[2021-05-01 07:46] LABS: Glucose Point of Care 117 mg/dl (65-105)
[2021-05-01] MEDS: MECLIZINE HCL 25 MG TABLET PO ×2 (09:13→16:54)
[2021-05-01] MEDS: HYOSCYAMINE SULFATE 0.125 MG TABLET PO (09:13)
[2021-05-01] MEDS: ENOXAPARIN 40 MG/0.4 ML SYRINGE SUB-Q (09:14)
[2021-05-01] MEDS: LOSARTAN POTASSIUM 100 MG TABLET PO (09:15)
[2021-05-01] MEDS: GABAPENTIN 300 MG CAPSULE PO (09:15)
[2021-05-01] MEDS: rOPINIRole HCL 1 MG TABLET 2 MG PO (09:15)
[2021-05-01] MEDS: CLOPIDOGREL BISULFATE 75 MG TABLET PO (09:15)
[2021-05-01] MEDS: amLODIPine BESYLATE 5 MG TABLET 10 MG PO (09:15)
[2021-05-01] MEDS: ATORVASTATIN 20 MG TABLET PO (09:15)
[2021-05-01] MEDS: ALPRAZolam (*CRX) 0.125 MG TABLET PO (10:23)
[2021-05-01 10:49] LABS: Add Urine Microscopic? YES; Appearance Urine Cloudy (Clear); Bacteria Urine Trace /hpf; Bilirubin Urine Negative (Negative); Blood Urine 3+ (Negative); Budding Yeast Urine Present /hpf; Color Urine Red (Yellow); Glucose Urine UA Negative (Negative); Ketones Urine Negative (Negative); Leukocyte Esterase Ur 3+ LEU/UL (NEGATIVE); Mucus Urine Rare /lpf; Nitrate Urine Negative (Negative); Protein Urine 2+ mg/dL (Negative); RBC Urine >75 /hpf (0-2); Specific Grav Ur 1.012 (1.001-1.035); Urobilinogen Urine Negative mg/dL (<2.0); WBC Clumps Urine Present /HPF; WBC Urine >75 /hpf (0-3)
[2021-05-01 12:08] LABS: Glucose Point of Care 149 mg/dl (65-105)
--- NOTE | 2021-05-01 12:23 | WPDURCON ---
Assessment and Plan Assessment and plan (1) Urinary retention: Code(s): R33.9 - Retention of urine, unspecified Status: Acute Assessment and Plan: Patient has unclear etiology and history of urinary retention -- this may be acute, chronic, or acute on chronic. At this time, with his urine appearing consistent with pyocystis, and his urine dip likely harboring frankie, will proceed with the following plan: Continue indwelling johnson catheter Begin course of Diflucan in addition to his current Rocephin When patient cleared for discharge, patient may be given a voiding trial/'fill & pull' if passes void trial (PVR <150cc) he may be discharged without a johnson and follow up with Urology as needed vs. 6-12 weeks for symptom check if fails void trial (PVR >150cc), he needs johnson replaced at discharge, and may be scheduled with Urology as an outpatient for a void trial in 3-4 weeks Given his poor self-care, would like to avoid indwelling johnson, if possible Given his Vertigo/falls, will hold on Tamsulosin due to possible orthostatic hypotension (2) Pyocystis: Code(s): N30.80 - Other cystitis without hematuria Status: Acute (3) Candiduria: Code(s): B37.49 - Other urogenital candidiasis Status: Acute Urology Consult Note HPI Date Seen: 05/01/21 Requesting Physician: Luana Fernandez MD Primary Care Provider: Flako Lackey MD Consult Narrative Narrative: Parish Keita is a 71 year old male for whom Urology is consulted for new diagnosis of urinary retention, likely pyocystis. This AM, he was complaining of suprapubic discomfort, bladder scan showed >700cc -- ultrasound showed debris in the bladder. A johnson was placed (patient had much pain with it, per report), and 800cc of sero-purulent urine was evacuated. Urology consulted shortly after. He was admitted due to sudden severe vertigo, which Neurology is working up. Per the notes, he has some significant neglect in self-care. He lives by himself and a friend comes to every other week to check on him. Patient by history is never smoker. He denies ever needing a johnson catheter before, but does appear to have some baseline urinary bother. UA showing yeast, WBC, and RBC. Culture data pending. He has been on Ceftriaxone. Serum WBC 11.8, Cr 0.6 Review of Systems Review of Systems: All systems reviewed & are unremarkable except as noted in HPI and below PMFSH Social History Social History Smoking status: Never smoker Alcohol intake: never Substance use: never Substance use type: does not use Spiritual care concerns: No Meds Home Medications and Allergies Home Medications Medication Instructions Recorded Confirmed Type amlodipine [Norvasc] 10 mg PO DAILY 04/25/21 04/25/21 History atorvastatin 20 mg PO DAILY 04/25/21 04/25/21 History cefdinir 300 mg PO Q12H #20 cap 04/25/21 Rx clopidogrel 75 mg PO DAILY 04/25/21 04/25/21 History gabapentin 300 mg PO DAILY 04/25/21 04/25/21 History losartan 100 mg PO DAILY 04/25/21 04/25/21 History meclizine 25 mg PO TID PRN #30 tablet 04/25/21 Rx metformin 500 mg PO DAILY 04/25/21 04/25/21 History ropinirole 2 mg PO DAILY 04/25/21 04/25/21 History ktxvchf-vzgvdfro-ienmkg comb 1 tab-cap PO DAILY 04/25/21 04/25/21 History tzvwlru-clgk-vlira-oreg-capryl 1 cap PO 04/25/21 History zolpidem 5 mg PO DAILY 04/25/21 04/25/21 History Allergies Allergy/AdvReac Type Severity Reaction Status Date / Time No Known Drug Allergies Allergy Unknown Other Verified 04/25/21 08:43 Vital Signs Vital Signs - 24 hr 04/30/21 14:00 04/30/21 22:00 05/01/21 06:00 Temperature 36.5 C 36.6 C 36.4 C Pulse Rate 86 87 83 Respiratory Rate 18 16 16 Blood Pressure 115/61 118/61 128/70 Pulse Oximetry 96 97 98 Exam Const: General: cooperative and poor hygiene Nutritional Appearance: malnourished Orientation/consciousness: oriented to
[2021-05-01] MEDS: FLUCONAZOLE 100 MG TABLET PO (13:25)
--- NOTE | 2021-05-01 13:29 | PCPTNOTE ---
Attempted to see patient this afternoon. Pt. reported he had a catheter put in today and he didn't feel he could participate in therapy due to the discomfort he felt. Pt. was not opening his eyes while talking. Pt. was encouraged to participate in therapy and explained to that it was safe to do exercises even with a catheter in place. Pt. still requested not to take part in therapy. We will plan to attempt to see pt. tomorrow per POC.
[2021-05-01 14:54] VITALS: BP 78/32; PULSE 71; RESP 16; TEMP 37.2; O2SAT 96
[2021-05-01 15:54] VITALS: BP 74/36
[2021-05-01] MEDS: SODIUM CHLORIDE 0.9% IV 1,000 ML 999 ML IV CONT (15:55)
[2021-05-01 16:45] LABS: Glucose Point of Care 156 mg/dl (65-105)
[2021-05-01 16:56] VITALS: BP 116/56
[2021-05-01] MEDS: SODIUM CHLORIDE 0.9% IV 1,000 ML 125 ML IV CONT (17:05)
[2021-05-01 17:17] LABS: Hematocrit 29.1 % (42.0-52.0); Hemoglobin 9.5 g/dL (14.0-18.0); Mean Corpuscular HGB Conc 32.6 g/dl (32-36); Mean Corpuscular Hemoglobin 31.8 pg (26-34); Mean Corpuscular Volume 97.3 fl (80-100); Mean Platelet Volume 9.7 fl (7.4-10.4); Platelet Count Result 191 k/mm3 (150-375); Red Blood Count 2.99 M/mm3 (4.6-6.20); Red Cell Distribution Width 12.8 % (11.5-14.5); White Blood Count 7.9 K/mm3 (4.5-10.0)
--- NOTE | 2021-05-01 17:20 | PM.IMPN ---
Progress Note: A&P Assessment and Plan (1) Candiduria: Code(s): B37.49 - Other urogenital candidiasis Status: Acute (2) Pyocystis: Code(s): N30.80 - Other cystitis without hematuria Status: Acute (3) Urinary retention: Code(s): R33.9 - Retention of urine, unspecified Status: Acute (4) Hypophosphatemia: Code(s): E83.39 - Other disorders of phosphorus metabolism Status: Acute (5) Anemia: Qualifiers: Anemia type: unspecified type Qualified Code(s): D64.9 - Anemia, unspecified Code(s): D64.9 - Anemia, unspecified Status: Acute (6) Leukocytosis: Qualifiers: Leukocytosis type: unspecified Qualified Code(s): D72.829 - Elevated white blood cell count, unspecified Code(s): D72.829 - Elevated white blood cell count, unspecified Status: Acute (7) Malnourished: Qualifiers: Malnutrition type: protein-calorie malnutrition Protein-calorie malnutrition severity: moderate Qualified Code(s): E44.0 - Moderate protein-calorie malnutrition Code(s): E46 - Unspecified protein-calorie malnutrition Status: Acute (8) Blindness and low vision: Code(s): H54.10 - Blindness, one eye, low vision other eye, unspecified eyes Status: Acute (9) Wheelchair bound: Code(s): Z99.3 - Dependence on wheelchair Status: Acute (10) Hemiplegia affecting left nondominant side: Qualifiers: Hemiplegia type: unspecified type Hemiplegia etiology: unspecified etiology Qualified Code(s): G81.94 - Hemiplegia, unspecified affecting left nondominant side Code(s): G81.94 - Hemiplegia, unspecified affecting left nondominant side Status: Acute (11) Benign paroxysmal positional vertigo: Qualifiers: Laterality: unspecified laterality Qualified Code(s): H81.10 - Benign paroxysmal vertigo, unspecified ear Code(s): H81.10 - Benign paroxysmal vertigo, unspecified ear Status: Acute (12) Acute UTI: Code(s): N39.0 - Urinary tract infection, site not specified Status: Acute (13) Urinary retention with incomplete bladder emptying: Code(s): R33.9 - Retention of urine, unspecified Status: Acute (14) Hematuria: Qualifiers: Hematuria type: gross Qualified Code(s): R31.0 - Gross hematuria Code(s): R31.9 - Hematuria, unspecified Status: Acute (15) Hypotension: Qualifiers: Hypotension type: unspecified hypotension type Qualified Code(s): I95.9 - Hypotension, unspecified Code(s): I95.9 - Hypotension, unspecified Status: Acute Additional Plan 1. Urinary retention with incomplete bladder emptying: -Pedraza is in place -urology on board -tamsulosin however was discontinued due to low blood pressure and waning 2. UTI with pyocystitis and hematuria: -continue IV ceftriaxone -fluconazole added 3. Episode of hypotension: -informed by the nurse and the patient had an episode blood pressure 70/40 -IV bolus 1 L provided -blood pressure medications discontinue -CBC ordered to check for anemia worsening -meclizine changed to p.r.n. -for not increase the Xanax dose and this time. -BP now better Time Spent With Patient Time with patient: 25 - 35 minutes Subjective Date/time seen: 05/01/21 17:20 Interval history: 71-year-old male with past medical history significant for hypertension, bilateral cataracts which legal blindness and prior history of stroke presented status post fall. He is being managed as a case of UTI and BPPV with concerns for Meniere's disease. In addition he also has concerns for protein calorie malnutrition and severe self neglect. He is to be seen by PT and OT after which possible disposition would be established. He was also noted to have abdominal pain for which reason ultrasound abdomen was ordered. Ultrasound abdomen revealed concerns for mild hydronephrosis uncertain debris seen in the
[2021-05-01] MEDS: ACETAMINOPHEN 325 MG TABLET 650 MG PO (20:05)
[2021-05-01 21:19] LABS: Glucose Point of Care 173 mg/dl (65-105)
[2021-05-01 21:31] VITALS: BP 116/45; PULSE 91; RESP 18; TEMP 36.4; O2SAT 98
[2021-05-02] MEDS: MAG HYDROX/AL HYDROX/SIMETH 30 ML UDC PO ×2 (00:44→22:43)
[2021-05-02] MEDS: HYDROcodone/acetaminophen (*CRX) 5-325 MG TABLET 1 TAB PO ×2 (00:44→09:03)
[2021-05-02] MEDS: SODIUM CHLORIDE 0.9% IV 1,000 ML 100 ML IV CONT (05:16)
[2021-05-02 05:54] LABS: Basophils Percent Auto 0.4 % (0.2-1.2); Eosinophils Absolute Auto 0.2 K/mm3 (0-0.3); Eosinophils Percent Auto 2.3 % (0-4.4); Hematocrit 32.8 % (42.0-52.0); Hemoglobin 10.7 g/dL (14.0-18.0); Immature Granulocyte Absolute 0.03 K/mm3 (0.00-0.031); Immature Granulocyte Percent A 0.3 % (0-0.5); Lymphocytes Absolute Auto 2.81 K/mm3 (0.9-3.2); Lymphocytes Percent Auto 28.8 % (18.3-44.2); Mean Corpuscular HGB Conc 32.6 g/dl (32-36); Mean Corpuscular Hemoglobin 31.3 pg (26-34); Mean Corpuscular Volume 95.9 fl (80-100); Mean Platelet Volume 9.8 fl (7.4-10.4); Monocytes Absolute Auto 0.9 K/mm3 (0.1-0.6); Monocytes Percent Auto 9.5 % (2.6-8.5); Neutrophils Absolute Auto 5.7 K/mm3 (1.3-6.7); Neutrophils Percent Auto 58.7 % (45.5-73.1); Platelet Count Result 217 k/mm3 (150-375); Red Blood Count 3.42 M/mm3 (4.6-6.20); Red Cell Distribution Width 12.6 % (11.5-14.5); White Blood Count 9.8 K/mm3 (4.5-10.0)
[2021-05-02 06:00] VITALS: BP 109/57; PULSE 85; RESP 18; TEMP 36.4; O2SAT 96
[2021-05-02 06:06] LABS: Alanine Aminotransferase 46 U/L (4-50); Albumin Level 2.7 g/dL (3.5-5.1); Alkaline Phosphatase 58 U/L (38-126); Anion Gap 2 mmol/L (8-16); Aspartate Amino Transferase 41 U/L (17-59); Bilirubin,Total 0.4 mg/dL (0.2-1.3); Blood Urea Nitrogen 27 mg/dL (9-20); Calcium 8.3 mg/dL (8.4-10.2); Carbon Dioxide 28 mmol/L (22-30); Chloride 104 mmol/L (98-107); Estimated CRCL calculation 83 ml/min; Estimated Glomerular Filt Rate > 60; Glucose 102 mg/dL (65-110); Magnesium 2.1 mg/dL (1.6-2.3); Phosphorus 2.8 mg/dL (2.5-4.5); Potassium 4.4 mmol/L (3.4-5.0); Sodium 134 mmol/L (137-145)
[2021-05-02 08:27] LABS: Glucose Point of Care 87 mg/dl (65-105)
[2021-05-02] MEDS: GABAPENTIN 300 MG CAPSULE PO (09:02)
[2021-05-02] MEDS: SIMETHICONE 80 MG TAB.CHEW PO ×4 (09:02→20:51)
[2021-05-02] MEDS: CALCIUM CARBONATE (TUMS) 500 MG (200 MG ELEMENTAL) PO ×3 (09:02→16:17)
[2021-05-02] MEDS: HYOSCYAMINE SULFATE 0.125 MG TABLET PO (09:03)
[2021-05-02] MEDS: FLUCONAZOLE 100 MG TABLET PO (09:03)
[2021-05-02] MEDS: rOPINIRole HCL 1 MG TABLET 2 MG PO (09:03)
[2021-05-02] MEDS: ATORVASTATIN 20 MG TABLET PO (09:03)
[2021-05-02] MEDS: CLOPIDOGREL BISULFATE 75 MG TABLET PO (09:03)
[2021-05-02] MEDS: MECLIZINE HCL 25 MG TABLET PO ×2 (09:04→16:22)
[2021-05-02] MEDS: ENOXAPARIN 40 MG/0.4 ML SYRINGE SUB-Q (09:04)
--- NOTE | 2021-05-02 10:28 | PCNFU ---
Nutrition Follow-Up Complete: Impaired ability to prepare foods/meals as evidenced by vision problems as evidenced by BMI: 17.8 underweight/malnourished. Goal: Meet estimated nutritional needs Patient is meeting current goal. No new goal. Pt current nutrition is Heart Healthy. Last recorded weight is 59.5 kg, no new weight to report. Bowel Motility:+BM reported 04/30 Labs Reviewed:Cr 0.6,BUN 27, Na 134, Alb 2.7, Hgb 10.7,Hct 32.8 Meds Noted:NS, Mylicon, Requip, Compazine, Zofran,Antivert, Rocephin, Plavix, Xanax, Mylanta, [place], Diflucan Additional Notes: Nutrition follow up. Patient states to tolerating breakfast well today. Oral intake's have been documented at 75-100% of meals. Plans for discharge home. Meals on Wheels has been set up with care coordination. No further nutritional interventions needed. Monitoring: Will monitor every 7 days.
[2021-05-02 14:00] LABS: Glucose Point of Care 109 mg/dl (65-105)
[2021-05-02 15:08] VITALS: BP 123/54; PULSE 79; RESP 18; TEMP 36.5; O2SAT 96
[2021-05-02] MEDS: ACETAMINOPHEN 325 MG TABLET 650 MG PO (16:22)
[2021-05-02 17:06] LABS: Glucose Point of Care 107 mg/dl (65-105)
--- NOTE | 2021-05-02 18:12 | PM.IMPN ---
Progress Note: A&P Assessment and Plan (1) Urinary retention with incomplete bladder emptying: Code(s): R33.9 - Retention of urine, unspecified Status: Acute (2) Candiduria: Code(s): B37.49 - Other urogenital candidiasis Status: Acute (3) Pyocystis: Code(s): N30.80 - Other cystitis without hematuria Status: Acute (4) Hematuria: Qualifiers: Hematuria type: gross Qualified Code(s): R31.0 - Gross hematuria Code(s): R31.9 - Hematuria, unspecified Status: Acute (5) Hypotension: Qualifiers: Hypotension type: unspecified hypotension type Qualified Code(s): I95.9 - Hypotension, unspecified Code(s): I95.9 - Hypotension, unspecified Status: Resolved (6) Leukocytosis: Qualifiers: Leukocytosis type: unspecified Qualified Code(s): D72.829 - Elevated white blood cell count, unspecified Code(s): D72.829 - Elevated white blood cell count, unspecified Status: Resolved (7) Hypophosphatemia: Code(s): E83.39 - Other disorders of phosphorus metabolism Status: Resolved (8) Blindness and low vision: Code(s): H54.10 - Blindness, one eye, low vision other eye, unspecified eyes Status: Acute (9) Wheelchair bound: Code(s): Z99.3 - Dependence on wheelchair Status: Acute (10) Benign paroxysmal positional vertigo: Qualifiers: Laterality: unspecified laterality Qualified Code(s): H81.10 - Benign paroxysmal vertigo, unspecified ear Code(s): H81.10 - Benign paroxysmal vertigo, unspecified ear Status: Acute (11) Acute UTI: Code(s): N39.0 - Urinary tract infection, site not specified Status: Acute (12) Self neglect: Code(s): R46.89 - Other symptoms and signs involving appearance and behavior Status: Acute Additional Plan 1. Urinary retention with incomplete bladder emptying: -Pedraza is in place; would likely need to be discharged on this catheter and to follow up with Urology as outpatient in 3-4 weeks. -urology on board -tamsulosin however was discontinued due to low blood pressure and waning 2. UTI with pyocystitis and hematuria: -continue IV ceftriaxone -fluconazole added -urine cultures are awaited -based on the urine cultures antibiotics would be recommended and route would also be determined that. Had an extensive conversation with the patient regarding his disposition. He would like to return home however there are significant concerns regarding his ability to care for himself given the conditions that he had arrived in. In addition given his decreased vision it would not be possible for him to monitor and manage the catheter, should he go home with catheter. He is being recommended we discharged to a rehab/SNF facility and after prolonged and much discussion patient is not ready to think about it. Time Spent With Patient Time with patient: 25 - 35 minutes Subjective Date/time seen: 05/02/21 18:12 Interval history: 71-year-old male with past medical history significant for hypertension, bilateral cataracts which legal blindness and prior history of stroke presented status post fall. He is being managed as a case of UTI and BPPV with concerns for Meniere's disease. In addition he also has concerns for protein calorie malnutrition and severe self neglect. He is to be seen by PT and OT after which possible disposition would be established. He was also noted to have abdominal pain for which reason ultrasound abdomen was ordered. Ultrasound abdomen revealed concerns for mild hydronephrosis uncertain debris seen in the bladder. On bladder scan 700 mL of urine was noted. Subsequently Pedraza's catheter was inserted and I was informed that patient had large amount of urine mixed with blood and later purulent material was also noted to be coming into the Pedraza's. Urology was placed on consult. Review of Systems Review of Systems: A 10 point re
[2021-05-02 20:14] VITALS: O2SAT 95
[2021-05-02 21:33] LABS: Glucose Point of Care 121 mg/dl (65-105)
[2021-05-02 22:00] VITALS: BP 118/63; PULSE 74; RESP 18; TEMP 36.7; O2SAT 97
[2021-05-03] MEDS: MAG HYDROX/AL HYDROX/SIMETH 30 ML UDC PO ×2 (05:26→23:50)
[2021-05-03] MEDS: HYDROcodone/acetaminophen (*CRX) 5-325 MG TABLET 1 TAB PO ×4 (05:57→22:45)
[2021-05-03 06:00] VITALS: BP 122/73; PULSE 88; RESP 18; TEMP 36.8; O2SAT 95
[2021-05-03 06:01] LABS: Basophils Absolute Auto 0.1 K/mm3 (0.0-0.1); Basophils Percent Auto 0.5 % (0.2-1.2); Eosinophils Absolute Auto 0.2 K/mm3 (0-0.3); Immature Granulocyte Absolute 0.04 K/mm3 (0.00-0.031); Immature Granulocyte Percent A 0.4 % (0-0.5); Lymphocytes Absolute Auto 2.15 K/mm3 (0.9-3.2); Lymphocytes Percent Auto 22.3 % (18.3-44.2); Mean Corpuscular HGB Conc 33.3 g/dl (32-36); Mean Corpuscular Hemoglobin 31.4 pg (26-34); Mean Corpuscular Volume 94.2 fl (80-100); Mean Platelet Volume 9.7 fl (7.4-10.4); Neutrophils Absolute Auto 6.2 K/mm3 (1.3-6.7); Neutrophils Percent Auto 64.8 % (45.5-73.1); Platelet Count Result 234 k/mm3 (150-375); Red Blood Count 3.82 M/mm3 (4.6-6.20); Red Cell Distribution Width 12.2 % (11.5-14.5); White Blood Count 9.6 K/mm3 (4.5-10.0)
[2021-05-03 06:32] LABS: Alanine Aminotransferase 48 U/L (4-50); Albumin Level 3.3 g/dL (3.5-5.1); Alkaline Phosphatase 72 U/L (38-126); Anion Gap 4 mmol/L (8-16); Aspartate Amino Transferase 32 U/L (17-59); Bilirubin,Total 0.5 mg/dL (0.2-1.3); Blood Urea Nitrogen 16 mg/dL (9-20); Calcium 9.1 mg/dL (8.4-10.2); Carbon Dioxide 29 mmol/L (22-30); Chloride 103 mmol/L (98-107); Estimated CRCL calculation 98 ml/min; Estimated Glomerular Filt Rate > 60; Glucose 106 mg/dL (65-110); Sodium 136 mmol/L (137-145)
[2021-05-03 07:55] LABS: Glucose Point of Care 104 mg/dl (65-105)
[2021-05-03] MEDS: GABAPENTIN 300 MG CAPSULE PO (08:06)
[2021-05-03] MEDS: ENOXAPARIN 40 MG/0.4 ML SYRINGE SUB-Q (08:06)
[2021-05-03] MEDS: ATORVASTATIN 20 MG TABLET PO (08:07)
[2021-05-03] MEDS: CLOPIDOGREL BISULFATE 75 MG TABLET PO (08:07)
[2021-05-03] MEDS: CALCIUM CARBONATE (TUMS) 500 MG (200 MG ELEMENTAL) PO ×3 (08:07→16:07)
[2021-05-03] MEDS: rOPINIRole HCL 1 MG TABLET 2 MG PO (08:07)
[2021-05-03] MEDS: FLUCONAZOLE 100 MG TABLET PO (08:07)
[2021-05-03] MEDS: diphenhydrAMINE HCl CAP 25 MG CAPSULE PO (09:24)
[2021-05-03] MEDS: PROCHLORPERAZINE MALEATE 5 MG TABLET 10 MG PO (09:24)
[2021-05-03] MEDS: DOCUSATE SODIUM 100 MG CAPSULE PO ×2 (10:16→20:39)
[2021-05-03] MEDS: polyethylene glycoL 3350 17 GM POWD.PACK PO (10:16)
--- NOTE | 2021-05-03 10:40 | PC.NURSE ---
On 05/03/21, the student, [Tatianna Hernandez ], provided care and completed [facility] documentation on this patient. I have reviewed the student's documentation and agree with the findings.
[2021-05-03] MEDS: SODIUM CHLORIDE 0.9% IV 1,000 ML 100 ML IV CONT ×2 (11:06→21:56)
[2021-05-03 11:36] LABS: Glucose Point of Care 166 mg/dl (65-105)
[2021-05-03] MEDS: MECLIZINE HCL 25 MG TABLET PO (12:13)
--- NOTE | 2021-05-03 13:47 | PM.IMPN ---
Progress Note: A&P Assessment and Plan (1) Self neglect: Code(s): R46.89 - Other symptoms and signs involving appearance and behavior Status: Acute (2) Hematuria: Qualifiers: Hematuria type: gross Qualified Code(s): R31.0 - Gross hematuria Code(s): R31.9 - Hematuria, unspecified Status: Acute (3) Urinary retention with incomplete bladder emptying: Code(s): R33.9 - Retention of urine, unspecified Status: Acute (4) Pyocystis: Code(s): N30.80 - Other cystitis without hematuria Status: Acute (5) Candiduria: Code(s): B37.49 - Other urogenital candidiasis Status: Acute (6) Anemia: Qualifiers: Anemia type: unspecified type Qualified Code(s): D64.9 - Anemia, unspecified Code(s): D64.9 - Anemia, unspecified Status: Acute (7) Malnourished: Qualifiers: Malnutrition type: protein-calorie malnutrition Protein-calorie malnutrition severity: moderate Qualified Code(s): E44.0 - Moderate protein-calorie malnutrition Code(s): E46 - Unspecified protein-calorie malnutrition Status: Acute (8) Wheelchair bound: Code(s): Z99.3 - Dependence on wheelchair Status: Acute (9) Blindness and low vision: Code(s): H54.10 - Blindness, one eye, low vision other eye, unspecified eyes Status: Acute (10) Hemiplegia affecting left nondominant side: Qualifiers: Hemiplegia type: unspecified type Hemiplegia etiology: unspecified etiology Qualified Code(s): G81.94 - Hemiplegia, unspecified affecting left nondominant side Code(s): G81.94 - Hemiplegia, unspecified affecting left nondominant side Status: Acute (11) Benign paroxysmal positional vertigo: Qualifiers: Laterality: unspecified laterality Qualified Code(s): H81.10 - Benign paroxysmal vertigo, unspecified ear Code(s): H81.10 - Benign paroxysmal vertigo, unspecified ear Status: Acute (12) Acute UTI: Code(s): N39.0 - Urinary tract infection, site not specified Status: Acute Additional Plan 1. Urinary retention with incomplete bladder emptying: -Pedraza's was placed as per Urology recommendations when patient was found to have 700 mL of retained urine. -and Pedraza's was inserted on 05/01, patient was noted to have purulent discharge coming out of the Pedraza's along with hematuria and large amount of cloudy urine. -tamsulosin however was discontinued due to low blood pressure 2. Failed voiding trial: - voiding trial was attempted today 05/03, however patient was unable to empty his bladder and the PVRs were noted to be >190 - Pedraza's was re-inserted; he would likely be discharged home with Pedraza's and will be required to follow as OP with urology for further management 2. UTI with pyocystitis and hematuria: -continue IV ceftriaxone and fluconazole added -urine cultures resulted no growth; however would cautiously interpret these results as patient has been on antibiotics and antifungals - He would regardless, benefit from being discharged on PO Antibiotics and antifungals when ready Please review the interval history for disposition challenges Time Spent With Patient Time with patient: 25 - 35 minutes Subjective Date/time seen: 05/03/21 13:47 Interval history: 71-year-old male with past medical history significant for hypertension, bilateral cataracts which legal blindness and prior history of stroke presented status post fall. He is being managed as a case of UTI and BPPV with concerns for Meniere's disease. In addition he also has concerns for protein calorie malnutrition and severe self neglect. He was also managed for urinary retention with resultant cystitis, pyocystitis and hematuria. For this reason Pedraza's was placed and Urology consulted. Voiding trial was attempted today however patient continued to retain urine with a PVR of 192. Hence, Pedraza's was placed back. he will be followe
[2021-05-03 14:00] VITALS: BP 138/53; PULSE 80; RESP 16; TEMP 36.3; O2SAT 98
[2021-05-03 16:54] LABS: Glucose Point of Care 253 mg/dl (65-105)
[2021-05-03 21:08] LABS: Glucose Point of Care 122 mg/dl (65-105)
[2021-05-03 22:00] VITALS: BP 108/50; PULSE 68; RESP 16; TEMP 36.1; O2SAT 99
[2021-05-03] MEDS: SIMETHICONE 80 MG TAB.CHEW PO (22:30)
[2021-05-04] MEDS: SIMETHICONE 80 MG TAB.CHEW PO ×3 (05:01→20:21)
[2021-05-04 06:00] VITALS: BP 114/50; PULSE 72; RESP 16; TEMP 36.2; O2SAT 97
[2021-05-04 08:13] LABS: Glucose Point of Care 106 mg/dl (65-105)
[2021-05-04] MEDS: SODIUM CHLORIDE 0.9% IV 1,000 ML 100 ML IV CONT ×2 (08:56→20:22)
[2021-05-04] MEDS: CALCIUM CARBONATE (TUMS) 500 MG (200 MG ELEMENTAL) PO ×3 (08:57→17:38)
[2021-05-04] MEDS: FLUCONAZOLE 100 MG TABLET PO (08:57)
[2021-05-04] MEDS: ATORVASTATIN 20 MG TABLET PO (08:57)
[2021-05-04] MEDS: ENOXAPARIN 40 MG/0.4 ML SYRINGE SUB-Q (08:58)
[2021-05-04] MEDS: GABAPENTIN 100 MG CAPSULE PO (08:58)
[2021-05-04] MEDS: rOPINIRole HCL 1 MG TABLET 2 MG PO (08:58)
[2021-05-04] MEDS: PROCHLORPERAZINE MALEATE 5 MG TABLET 10 MG PO (08:59)
[2021-05-04] MEDS: DOCUSATE SODIUM 100 MG CAPSULE PO ×2 (08:59→20:21)
[2021-05-04] MEDS: CLOPIDOGREL BISULFATE 75 MG TABLET PO (09:00)
[2021-05-04 12:05] LABS: Glucose Point of Care 137 mg/dl (65-105)
[2021-05-04] MEDS: HYDROcodone/acetaminophen (*CRX) 5-325 MG TABLET 1 TAB PO (13:14)
[2021-05-04 14:00] VITALS: BP 114/65; PULSE 89; RESP 18; TEMP 36.8; O2SAT 97
[2021-05-04] MEDS: MAG HYDROX/AL HYDROX/SIMETH 30 ML UDC PO (15:18)
--- NOTE | 2021-05-04 16:32 | PM.IMPN ---
Progress Note: A&P Assessment and Plan (1) Self neglect: Code(s): R46.89 - Other symptoms and signs involving appearance and behavior Status: Acute (2) Urinary retention with incomplete bladder emptying: Code(s): R33.9 - Retention of urine, unspecified Status: Acute (3) Candiduria: Code(s): B37.49 - Other urogenital candidiasis Status: Acute (4) Pyocystis: Code(s): N30.80 - Other cystitis without hematuria Status: Acute (5) Hypotension: Qualifiers: Hypotension type: unspecified hypotension type Qualified Code(s): I95.9 - Hypotension, unspecified Code(s): I95.9 - Hypotension, unspecified Status: Resolved (6) Anemia: Qualifiers: Anemia type: unspecified type Qualified Code(s): D64.9 - Anemia, unspecified Code(s): D64.9 - Anemia, unspecified Status: Acute (7) Hemiplegia affecting left nondominant side: Qualifiers: Hemiplegia type: unspecified type Hemiplegia etiology: unspecified etiology Qualified Code(s): G81.94 - Hemiplegia, unspecified affecting left nondominant side Code(s): G81.94 - Hemiplegia, unspecified affecting left nondominant side Status: Acute (8) Benign paroxysmal positional vertigo: Qualifiers: Laterality: unspecified laterality Qualified Code(s): H81.10 - Benign paroxysmal vertigo, unspecified ear Code(s): H81.10 - Benign paroxysmal vertigo, unspecified ear Status: Acute (9) Wheelchair bound: Code(s): Z99.3 - Dependence on wheelchair Status: Acute (10) Malnourished: Qualifiers: Malnutrition type: protein-calorie malnutrition Protein-calorie malnutrition severity: moderate Qualified Code(s): E44.0 - Moderate protein-calorie malnutrition Code(s): E46 - Unspecified protein-calorie malnutrition Status: Acute Additional Plan 1. Urinary retention with incomplete bladder emptying: -Pedraza's was placed as per Urology recommendations when patient was found to have 700 mL of retained urine. -and Pedraza's was inserted on 05/01, patient was noted to have purulent discharge coming out of the Pedraza's along with hematuria and large amount of cloudy urine. -tamsulosin however was discontinued due to low blood pressure 2. Failed voiding trial: - voiding trial was attempted today 05/03, however patient was unable to empty his bladder and the PVRs were noted to be >190 - Pedraza's was re-inserted; he would likely be discharged home with Pedraza's and will be required to follow as OP with urology for further management 2. UTI with pyocystitis and hematuria: -continue IV ceftriaxone and fluconazole added -urine cultures resulted no growth; however would cautiously interpret these results as patient has been on antibiotics and antifungals - He would regardless, benefit from being discharged on PO Antibiotics and antifungals when ready Time Spent With Patient Time with patient: 15 - 25 minutes Subjective Date/time seen: 05/04/21 16:32 Interval history: 71-year-old male with past medical history significant for hypertension, bilateral cataracts which legal blindness and prior history of stroke presented status post fall. He is being managed as a case of UTI and BPPV with concerns for Meniere's disease. In addition he also has concerns for protein calorie malnutrition and severe self neglect. He was also managed for urinary retention with resultant cystitis, pyocystitis and hematuria. For this reason Pedraza's was placed and Urology consulted. Voiding trial was attempted today however patient continued to retain urine with a PVR of 192. Hence, Pedraza's was placed back. he will be followed with urology after discharge for repeat trial. Of note, his tamsulosin has been on hold due to concerns for dizziness as well. Given the concerns for self neglect, patient was seen by PT/OT and recommended SNF placement which the patient initially declined. The plan
[2021-05-04 17:24] LABS: Glucose Point of Care 129 mg/dl (65-105)
[2021-05-04 20:43] LABS: Glucose Point of Care 142 mg/dl (65-105)
[2021-05-04 22:00] VITALS: BP 131/56; PULSE 80; RESP 18; TEMP 37.2; O2SAT 99
[2021-05-05] MEDS: ACETAMINOPHEN 325 MG TABLET 650 MG PO ×2 (01:25→07:09)
[2021-05-05] MEDS: MAG HYDROX/AL HYDROX/SIMETH 30 ML UDC PO ×2 (01:25→21:49)
[2021-05-05 05:42] VITALS: BP 119/49; PULSE 72; RESP 18; TEMP 36.7; O2SAT 96
[2021-05-05 06:20] LABS: Basophils Percent Auto 0.5 % (0.2-1.2); Eosinophils Absolute Auto 0.2 K/mm3 (0-0.3); Eosinophils Percent Auto 2.1 % (0-4.4); Hematocrit 32.1 % (42.0-52.0); Hemoglobin 10.9 g/dL (14.0-18.0); Immature Granulocyte Absolute 0.04 K/mm3 (0.00-0.031); Immature Granulocyte Percent A 0.5 % (0-0.5); Lymphocytes Absolute Auto 2.51 K/mm3 (0.9-3.2); Lymphocytes Percent Auto 29.4 % (18.3-44.2); Mean Corpuscular Hemoglobin 31.1 pg (26-34); Mean Corpuscular Volume 91.7 fl (80-100); Mean Platelet Volume 10.1 fl (7.4-10.4); Monocytes Absolute Auto 0.8 K/mm3 (0.1-0.6); Neutrophils Percent Auto 58.5 % (45.5-73.1); Platelet Count Result 241 k/mm3 (150-375); Red Cell Distribution Width 12.6 % (11.5-14.5); White Blood Count 8.6 K/mm3 (4.5-10.0)
[2021-05-05 06:44] LABS: Alanine Aminotransferase 71 U/L (4-50); Alkaline Phosphatase 77 U/L (38-126); Anion Gap 5 mmol/L (8-16); Aspartate Amino Transferase 48 U/L (17-59); Bilirubin,Total 0.5 mg/dL (0.2-1.3); Blood Urea Nitrogen 18 mg/dL (9-20); Calcium 8.8 mg/dL (8.4-10.2); Carbon Dioxide 28 mmol/L (22-30); Chloride 104 mmol/L (98-107); Estimated CRCL calculation 98 ml/min; Estimated Glomerular Filt Rate > 60; Glucose 100 mg/dL (65-110); Potassium 4.4 mmol/L (3.4-5.0); Sodium 137 mmol/L (137-145)
[2021-05-05] MEDS: SIMETHICONE 80 MG TAB.CHEW PO ×2 (07:09→18:51)
[2021-05-05] MEDS: SODIUM CHLORIDE 0.9% IV 1,000 ML 100 ML IV CONT ×2 (07:10→17:50)
[2021-05-05 08:22] LABS: Glucose Point of Care 99 mg/dl (65-105)
[2021-05-05] MEDS: ENOXAPARIN 40 MG/0.4 ML SYRINGE SUB-Q (08:32)
[2021-05-05] MEDS: CLOPIDOGREL BISULFATE 75 MG TABLET PO (08:33)
[2021-05-05] MEDS: ATORVASTATIN 20 MG TABLET PO (08:33)
[2021-05-05] MEDS: rOPINIRole HCL 1 MG TABLET 2 MG PO (08:33)
[2021-05-05] MEDS: FLUCONAZOLE 100 MG TABLET PO (08:33)
[2021-05-05] MEDS: DOCUSATE SODIUM 100 MG CAPSULE PO ×2 (08:33→21:49)
[2021-05-05] MEDS: PROCHLORPERAZINE MALEATE 5 MG TABLET 10 MG PO (08:33)
[2021-05-05] MEDS: GABAPENTIN 100 MG CAPSULE PO (08:33)
[2021-05-05] MEDS: MECLIZINE HCL 25 MG TABLET PO ×2 (09:57→18:04)
[2021-05-05] MEDS: CALCIUM CARBONATE (TUMS) 500 MG (200 MG ELEMENTAL) PO ×3 (09:57→18:04)
[2021-05-05 12:26] LABS: Glucose Point of Care 145 mg/dl (65-105)
[2021-05-05] MEDS: polyethylene glycoL 3350 17 GM POWD.PACK PO (12:52)
[2021-05-05 14:00] VITALS: BP 109/47; PULSE 78; RESP 17; TEMP 36.6; O2SAT 97
[2021-05-05 16:46] LABS: Glucose Point of Care 131 mg/dl (65-105)
--- NOTE | 2021-05-05 17:35 | PM.IMPN ---
Progress Note: A&P Assessment and Plan (1) Self neglect: Code(s): R46.89 - Other symptoms and signs involving appearance and behavior Status: Acute (2) Urinary retention with incomplete bladder emptying: Code(s): R33.9 - Retention of urine, unspecified Status: Acute (3) Pyocystis: Code(s): N30.80 - Other cystitis without hematuria Status: Acute (4) Urinary retention: Code(s): R33.9 - Retention of urine, unspecified Status: Acute (5) Benign paroxysmal positional vertigo: Qualifiers: Laterality: unspecified laterality Qualified Code(s): H81.10 - Benign paroxysmal vertigo, unspecified ear Code(s): H81.10 - Benign paroxysmal vertigo, unspecified ear Status: Acute (6) Malnourished: Qualifiers: Malnutrition type: protein-calorie malnutrition Protein-calorie malnutrition severity: moderate Qualified Code(s): E44.0 - Moderate protein-calorie malnutrition Code(s): E46 - Unspecified protein-calorie malnutrition Status: Acute (7) Candiduria: Code(s): B37.49 - Other urogenital candidiasis Status: Acute Time Spent With Patient Time: 1. BPPV: - Meclizine was made PRN instead of scheduled due to concerns for episodes of hypotension - now, patient complains of dizziness today, so we will resume Meclizine 25mg TID as scheduled 2. Urinary retention with incomplete bladder emptying: -Pedraza's was placed as per Urology recommendations when patient was found to have 700 mL of retained urine. -and Pedraza's was inserted on 05/01, patient was noted to have purulent discharge coming out of the Pedraza's along with hematuria and large amount of cloudy urine. -tamsulosin however was discontinued due to low blood pressure 2. Failed voiding trial: - voiding trial was attempted today 05/03, however patient was unable to empty his bladder and the PVRs were noted to be >190 - Pedraza's was re-inserted; he would likely be discharged home with Pedraza's and will be required to follow as OP with urology for further management 2. UTI with pyocystitis and hematuria: -continue IV ceftriaxone and fluconazole added -urine cultures resulted no growth; however would cautiously interpret these results as patient has been on antibiotics and antifungals - He would regardless, benefit from being discharged on PO Antibiotics and antifungals when ready DISPOSITION: Can be dsicharged to SNF tomorrow after Vertigo symptoms better controlled Time with patient: 15 - 25 minutes Subjective Date/time seen: 05/05/21 17:35 Interval history: 71-year-old male with past medical history significant for hypertension, bilateral cataracts which legal blindness and prior history of stroke presented status post fall. He is being managed as a case of UTI, urinary retention and BPPV.. In addition he also has concerns for protein calorie malnutrition and severe self neglect. He was noted to have cystitis, pyocystitis and hematuria. For this reason Pedraza's was placed and Urology consulted. Voiding trial was attempted 05/04 however patient continued to retain urine with a PVR of 192. Hence, Pedraza's was placed back. he will be followed with urology after discharge for repeat trial. Of note, his tamsulosin has been on hold due to concerns for dizziness as well. 05/05 patient has repeated concerns for vertigo after meclizine was made p.r.n. instead of scheduled due to hypotension. Given the concerns for self neglect, patient was seen by PT/OT and recommended SNF placement which the patient initially declined. However, after much discussion, patient will now be able to be placed into nursing facility. He has been accepted insurance authorization has gone through. However he would like to see if his symptoms get better today and then can be discharged tomorrow. Patient would require a 10-day course of PO Abx prior to discharge. (Levaquin 750mg Daily) Review of Systems Review of Systems: A 1
[2021-05-05] MEDS: HYDROcodone/acetaminophen (*CRX) 5-325 MG TABLET 1 TAB PO (18:59)
[2021-05-05 19:35] VITALS: O2SAT 96
[2021-05-05 22:00] VITALS: BP 118/50; PULSE 76; RESP 17; TEMP 36.3; O2SAT 99
[2021-05-05 22:01] LABS: Glucose Point of Care 133 mg/dl (65-105)
[2021-05-06] MEDS: ACETAMINOPHEN 325 MG TABLET 650 MG PO (00:57)
[2021-05-06] MEDS: SIMETHICONE 80 MG TAB.CHEW PO ×2 (00:57→11:37)
[2021-05-06] MEDS: SODIUM CHLORIDE 0.9% IV 1,000 ML 100 ML IV CONT (03:57)
[2021-05-06 05:52] VITALS: BP 122/62; PULSE 70; RESP 17; TEMP 36.4; O2SAT 97
[2021-05-06 06:13] LABS: Basophils Percent Auto 0.4 % (0.2-1.2); Eosinophils Absolute Auto 0.3 K/mm3 (0-0.3); Eosinophils Percent Auto 3.4 % (0-4.4); Hematocrit 33.2 % (42.0-52.0); Immature Granulocyte Absolute 0.04 K/mm3 (0.00-0.031); Immature Granulocyte Percent A 0.5 % (0-0.5); Lymphocytes Absolute Auto 2.73 K/mm3 (0.9-3.2); Lymphocytes Percent Auto 37.3 % (18.3-44.2); Mean Corpuscular HGB Conc 33.1 g/dl (32-36); Mean Corpuscular Hemoglobin 31.3 pg (26-34); Mean Corpuscular Volume 94.3 fl (80-100); Mean Platelet Volume 9.6 fl (7.4-10.4); Monocytes Absolute Auto 0.8 K/mm3 (0.1-0.6); Monocytes Percent Auto 10.9 % (2.6-8.5); Neutrophils Absolute Auto 3.5 K/mm3 (1.3-6.7); Neutrophils Percent Auto 47.5 % (45.5-73.1); Platelet Count Result 229 k/mm3 (150-375); Red Blood Count 3.52 M/mm3 (4.6-6.20); Red Cell Distribution Width 12.6 % (11.5-14.5); White Blood Count 7.3 K/mm3 (4.5-10.0)
[2021-05-06] MEDS: MAG HYDROX/AL HYDROX/SIMETH 30 ML UDC PO ×2 (06:20→13:04)
[2021-05-06] MEDS: HYDROcodone/acetaminophen (*CRX) 5-325 MG TABLET 1 TAB PO ×2 (06:20→13:08)
[2021-05-06 06:25] LABS: Alanine Aminotransferase 82 U/L (4-50); Albumin Level 3.1 g/dL (3.5-5.1); Alkaline Phosphatase 79 U/L (38-126); Anion Gap 5 mmol/L (8-16); Aspartate Amino Transferase 48 U/L (17-59); Bilirubin,Total 0.4 mg/dL (0.2-1.3); Blood Urea Nitrogen 18 mg/dL (9-20); Calcium 8.8 mg/dL (8.4-10.2); Carbon Dioxide 29 mmol/L (22-30); Chloride 105 mmol/L (98-107); Estimated CRCL calculation 98 ml/min; Estimated Glomerular Filt Rate > 60; Glucose 91 mg/dL (65-110); Potassium 3.9 mmol/L (3.4-5.0); Sodium 139 mmol/L (137-145)
[2021-05-06 08:32] LABS: Glucose Point of Care 82 mg/dl (65-105)
[2021-05-06] MEDS: ATORVASTATIN 20 MG TABLET PO (08:51)
[2021-05-06] MEDS: CALCIUM CARBONATE (TUMS) 500 MG (200 MG ELEMENTAL) PO ×2 (08:51→12:09)
[2021-05-06] MEDS: DOCUSATE SODIUM 100 MG CAPSULE PO (08:51)
[2021-05-06] MEDS: rOPINIRole HCL 1 MG TABLET 2 MG PO (08:51)
[2021-05-06] MEDS: GABAPENTIN 100 MG CAPSULE PO (08:52)
[2021-05-06] MEDS: CLOPIDOGREL BISULFATE 75 MG TABLET PO (08:52)
[2021-05-06] MEDS: ENOXAPARIN 40 MG/0.4 ML SYRINGE SUB-Q (08:52)
[2021-05-06] MEDS: polyethylene glycoL 3350 17 GM POWD.PACK PO (08:57)
[2021-05-06] MEDS: MECLIZINE HCL 25 MG TABLET PO ×2 (08:58→13:04)
[2021-05-06] MEDS: SENNA/DOCUSATE SODIUM TABLET 1 TAB PO (11:35)
[2021-05-06] MEDS: AMOXICILLIN/CLAVULANATE K 875-125 MG TAB 1 TABLET PO (11:36)
[2021-05-06 12:09] LABS: Glucose Point of Care 101 mg/dl (65-105)
[2021-05-06 12:54] LABS: EDCOVIDSCREEN Negative (Negative)
--- NOTE | 2021-05-06 13:51 | PM.DS ---
DS: Admitting Diagnosis Discharge Date 05/06/2021 Admitting Diagnosis vertigo DS: Discharge Diagnosis Discharge Diagnosis (1) Self neglect: Code(s): R46.89 - Other symptoms and signs involving appearance and behavior Status: Acute (2) Urinary retention with incomplete bladder emptying: Code(s): R33.9 - Retention of urine, unspecified Status: Acute (3) Pyocystis: Code(s): N30.80 - Other cystitis without hematuria Status: Acute (4) Urinary retention: Code(s): R33.9 - Retention of urine, unspecified Status: Acute (5) Benign paroxysmal positional vertigo: Qualifiers: Laterality: unspecified laterality Qualified Code(s): H81.10 - Benign paroxysmal vertigo, unspecified ear Code(s): H81.10 - Benign paroxysmal vertigo, unspecified ear Status: Acute Assessment and Plan: Supportive care Likely worsened by urinary tract infection. (6) Malnourished: Qualifiers: Malnutrition type: protein-calorie malnutrition Protein-calorie malnutrition severity: moderate Qualified Code(s): E44.0 - Moderate protein-calorie malnutrition Code(s): E46 - Unspecified protein-calorie malnutrition Status: Acute (7) Candiduria: Code(s): B37.49 - Other urogenital candidiasis Status: Acute DS: Summary Hospital Course Reason for hospitalization: vertigo Hospital Course: Please refer to admission history and physical. Briefly, this is a 71-year-old male with past medical history significant for hypertension, bilateral cataract, nearsightedness, lives by himself has a friend who used to be his national business director that comes every other week to check in with him and has another person the comes once a month, patient is wheelchair-bound secondary to stroke with left-sided hemiplegia. Patient had suffered a fall while he was trying to transfer from bed to chair; he hit his head on the way down but there was no loss of consciousness he managed to called EMS who came to the house and place him back in the chair there was no noted injury at that time and patient's vitals were within normal limits as well. The patient was brought to the emergency room via EMS after while he was reaching down while in bed bed trying to place is urine on the floor had a sudden onset of violent vertigo he trying is staying stable by repositioning back in bed but when he tried to move again had the same episode. Patient states that has been quite fine has had no issues lately no loss of consciousness, no syncope ,no near-syncope, no nausea, no vomiting, no fever, no chills, no rigors, no cough, no sputum production, he did notice increased frequency urinating. Preliminary workup was significant for urinalysis with numerous wbc's, a CT of the head was significant for old stroke, rest of workup was pretty much unrevealing. He was diagnosed with a UTI started appropriately on Rocephin. Urinalysis reveals 3+ Leuk esterase in urine. Likely explanation for polyuria, and suspect also vertigo symptoms. for his hypertension the patient was continued on amlodipine 10 mg p.o. daily and losartan 100 mg p.o. daily. He was diagnosed with benign paroxysmal vertigo. He was evaluated with physical therapy and occupational therapy. given valid and episodic nature of these pills and the association of concomitant tendinitis the patient was considered for possible Meniere's disease. Her trial of HCTZ trauma/triamterene daily was performed. Patient will benefit from outpatient neurology follow. On 05/01/2021, the patient developed urinary retention. It is unclear how long the patient has been experiencing the symptoms. This may be acute chronic or acute on chronic. Urinalysis reveals pyuria and culture grew Beata. Per urology recommendation indwelling Pedraza catheter was continued and course of Diflucan was added to his Rocephin. Recommendation was to do a voiding trial /feeling improved. However
[2021-05-06 14:00] VITALS: BP 136/58; PULSE 70; RESP 16; TEMP 36.1; O2SAT 99
== END 2021-05-06 16:00 | DRG 728 ==
LOC: ANHED 06:24 → ANH3MEDSUR 06:39
PROVIDERS: Internal Medicine; Admitting Provider Internal Medicine; Emergency Provider Emergency Medicine; PCP Emergency Medicine; Visit Provider Internal Medicine
DX: B37.41 Candidal cystitis and urethritis (principal); E44.0 Moderate protein-calorie malnutrition; Z68.1 Body mass index [BMI] 19.9 or less, adult; I69.354 Hemiplegia and hemiparesis following cerebral infarction affecting left non-dominant side; Z20.822 Contact with and (suspected) exposure to COVID-19; Z23 Encounter for immunization; H81.10 Benign paroxysmal vertigo, unspecified ear; R33.9 Retention of urine, unspecified; Z99.3 Dependence on wheelchair; W06.XXXA Fall from bed, initial encounter; I10 Essential (primary) hypertension; H54.10 Blindness, one eye, low vision other eye, unspecified eyes; D72.829 Elevated white blood cell count, unspecified; I95.9 Hypotension, unspecified
CPT/HCPCS: 36415; 70450; 70551; 76700; 80053; 81001; 82728; 82948; 83605; 83735; 84100; 84443; 85025; 85027; 87086; 87088; 87426; 90471; 90653; 93005; 96361; 96365; 96372; 97110; 97162; 97167; 97530; 97535; 99285; A9270; C9803; G0008; G0378; J0696; J1650; J2405; J7030

== ENCOUNTER 2021-06-30 15:56 | Inpatient (IN) | payer OTHER, MEDICARE, SELFPAY ==
[2021-06-30] VITALS (13 sets, daily range): BP systolic 119–133; BP diastolic 76–92; PULSE 76–105; RESP 14–34; O2SAT 99–100
--- NOTE | ~2021-06-30 | XR_ITS ---
EXAMINATION: XR chest 1V portable INDICATION: Pain after fall TECHNIQUE: Portable AP chest at 1636 hours COMPARISON: 08/24/2015 FINDINGS: The lungs are free of acute opacities. There is no pleural effusion or pneumothorax. The ca rdiomediastinal silhouette is normal. IMPRESSION: 1. No acute cardiopulmonary abnormality. Reviewed, dictated and finalized at location [facility]
--- NOTE | ~2021-06-30 | CT_ITS ---
EXAMINATION: CT abdomen pelvis w con INDICATION: Fasciitis of the scrotum TECHNIQUE: Computed tomographic images of the abdomen and pelvis were obtained after the administrati on of 100 cc of Omnipaque 350 intravenous contrast. The dose-length product (DLP) was 324.30 mGy-cm. Automated exposure control and iterative reconstruction technique were employed. COMPARISON: None available FINDINGS: The lung bases are clear. The heart size is normal. The liver, pancreas, gallbladder, and a drenal glands are normal. Punctate calcifications in an otherwise normal spleen likely represent heal ed granulomatous disease. Cysts of the kidneys measure up to 3.7 cm on the right. There is calcified atherosclerosis of the aorta and many of the other arteries. No pathologically enlarged abdominal or pelvic lymph nodes are identified. There is eccentric thickening of the left anterolateral bladder wa ll. No soft tissue gas is identified in the scrotum or perineum. There is severe lumbar spondylosis. A large volume of colonic stool is present. IMPRESSION: 1. No CT correlate for the patient's symptoms. 2. Eccentric wall thickening of the left anterolateral bladder wall concerning for urothelial carcino ma. Nonemergent urologic evaluation is recommended. Reviewed, dictated and finalized at location [facility] IMPRESSION: 1. No CT correlate for the patient's symptoms. 2. Eccentric wall thickening of the left anterolateral bladder wall concerning for urothelial carcinoma. Nonemergent urologic evaluation is recommended.
--- NOTE | 2021-06-30 15:57 | ECG_ITS ---
Measurements Intervals English Rate: 95 P: 77 TN: 120 QRS: -53 QRSD: 126 T: 66 QT: 391 QTc: 492 Interpretive Statements SINUS RHYTHM RIGHT BUNDLE BRANCH BLOCK LEFT ANTERIOR FASCICULAR BLOCK BASELINE ARTIFACT- I, II, III, AVR, AVL,A VF, V1-V6 ABNORMAL ECG Electronically Signed On 06-30-2021 18:44:16 [employer] ENGINEER by Giancarlo Lopez D.O.
[2021-06-30] MEDS: SODIUM CHLORIDE 0.9% IV 1,000 ML 999 ML IV CONT ×2 (16:29)
--- NOTE | 2021-06-30 17:01 | PC.NURSE ---
report filed with Mr Capone at adult protective services. Case referred to [facility] who will follow up with report
[2021-06-30 17:03] LABS: Basophils Absolute Auto 0.1 K/mm3 (0.0-0.1); Basophils Percent Auto 0.2 % (0.2-1.2); Hematocrit 44.6 % (42.0-52.0); Hemoglobin 14.6 g/dL (14.0-18.0); Immature Granulocyte Absolute 0.26 K/mm3 (0.00-0.031); Immature Granulocyte Percent A 1.1 % (0-0.5); Lymphocytes Absolute Auto 1.46 K/mm3 (0.9-3.2); Lymphocytes Percent Auto 6.2 % (18.3-44.2); Mean Corpuscular HGB Conc 32.7 g/dl (32-36); Mean Corpuscular Hemoglobin 30.6 pg (26-34); Mean Corpuscular Volume 93.5 fl (80-100); Mean Platelet Volume 9.5 fl (7.4-10.4); Monocytes Absolute Auto 1.1 K/mm3 (0.1-0.6); Monocytes Percent Auto 4.6 % (2.6-8.5); Neutrophils Absolute Auto 20.8 K/mm3 (1.3-6.7); Neutrophils Percent Auto 87.9 % (45.5-73.1); Platelet Count Result 461 k/mm3 (150-375); Red Blood Count 4.77 M/mm3 (4.6-6.20); Red Cell Distribution Width 14.1 % (11.5-14.5); White Blood Count 23.7 K/mm3 (4.5-10.0)
[2021-06-30 17:13] LABS: INR 1.1; Prothrombin Time 13.7 Seconds (11.1-14.7)
[2021-06-30 17:14] LABS: Partial Thromboplastin Time 30.4 SECONDS (22.3-36.8)
[2021-06-30 17:20] LABS: Lactic Acid Reflex 3.3 mmol/L (0.7-2.1)
[2021-06-30 17:29] LABS: Troponin I 0.027 ng/mL (0.000-0.034)
[2021-06-30 17:42] LABS: Alanine Aminotransferase 66 U/L (4-50); Albumin Level 4.2 g/dL (3.5-5.1); Alkaline Phosphatase 143 U/L (38-126); Anion Gap 11 mmol/L (8-16); Aspartate Amino Transferase 81 U/L (17-59); Blood Urea Nitrogen 49 mg/dL (9-20); Calcium 11.2 mg/dL (8.4-10.2); Carbon Dioxide 26 mmol/L (22-30); Chloride 107 mmol/L (98-107); Creatine Kinase 488 U/L (55-170); Estimated CRCL calculation 64 ml/min; Estimated Glomerular Filt Rate > 60; Glucose 186 mg/dL (65-110); Lipase 71 U/L (23-300); Potassium 4.6 mmol/L (3.4-5.0); Sodium 144 mmol/L (137-145)
--- NOTE | 2021-06-30 19:16 | ED.GENADULT ---
HPI - General Adult General Chief complaint: Fall Stated complaint: on floor x 2 days, fall from w/c Time Seen by Provider: 06/30/21 16:11 Source: patient, EMS and RN notes reviewed Limitations: physical limitation History of Present Illness HPI narrative: Patient brought to the emergency room by ambulance because of general weakness and fall. History of stroke, got kicked out of [facility] 2 weeks ago, wheelchair-bound, lives alone, his guardian supplied him with food every now and then, last time was seen by his guardian 4 days ago. Today his guardian tried to call him without response, 911 was called, patient found laying on the floor with urine and stool all over. His guardian also telling me that patient been urinating and defecating on his wheelchair all the time, no orthodontic assistant, patient lost his insurance thus why he got kicked out of [facility]. Currently patient is awake, alert oriented x4, does not remember when he ate last and how he ended up laying down on the floor. His guardian telling me that patient have chronic urinary tract infection and been treated numerous of time without any success. Patient is full code. Basically patient been urinating and defecating on his wheelchair for the last 2 weeks. Related Data Home Medications Medication Instructions Recorded Confirmed amlodipine [Norvasc] 10 mg PO DAILY 04/25/21 04/25/21 atorvastatin 20 mg PO DAILY 04/25/21 04/25/21 clopidogrel 75 mg PO DAILY 04/25/21 04/25/21 gabapentin 300 mg PO DAILY 04/25/21 04/25/21 losartan 100 mg PO DAILY 04/25/21 04/25/21 metformin 500 mg PO DAILY 04/25/21 04/25/21 ropinirole 2 mg PO DAILY 04/25/21 04/25/21 bkrbwds-jhkqsdmt-edssow comb 1 tab-cap PO DAILY 04/25/21 04/25/21 ayzneww-whwy-gncyw-oreg-capryl 1 cap PO DAILY 04/25/21 05/04/21 zolpidem 5 mg PO DAILY 04/25/21 04/25/21 Allergies Allergy/AdvReac Type Severity Reaction Status Date / Time No Known Drug Allergies Allergy Unknown Other Verified 06/30/21 16:07 Review of Systems Review of Systems: ROS unobtainable: Yes unobtainable due to medical condition PMFSH Social History Social History Smoking status: Never smoker Alcohol intake: never Substance use: never Substance use type: does not use Spiritual care concerns: No Exam Narrative: General appearance: Well-developed, cachectic Skin: Cold, scattered skin abrasion, scabs with different stages, ulcerations mainly on the scrotum extensive skin maceration at the back of the thigh and buttocks secondary to dry stool and retaining urine on the wheelchair Head: Normocephalic, nontraumatic Eyes: Clear conjunctiva, legally blind ENT: Oropharynx normal, ears normal, nose normal Neck: Supple, nontender Chest and respiratory: Airway patent, no respiratory distress, no accessory muscle use Heart: Regular rate/rhythm Abdomen: Soft, nontender, no organomegaly, quiet bowel sounds Vascular: Normal peripheral pulses, normal capillary refill. Musculoskeletal: Contracted lower extremities Neurologic: Alert and oriented ?3,, left hemiplegia Course Course Emergency Course: Improving Reevaluation(s) Reevaluation #1: Patient declined Pedraza catheter or straight cath. Patient had 3 meals in the emergency room since arrival to the emergency room. Date: 07/01/21 Time: 00:12 Vital Signs Vital signs: Vital Signs Pulse Rate 100 06/30/21 16:01 Respiratory Rate 18 06/30/21 16:01 Blood Pressure 132/92 H 06/30/21 16:01 Pulse Oximetry 100 06/30/21 16:01 Pulse Rate 104 H 06/30/21 23:25 Respiratory Rate 18 06/30/21 23:25 Blood Pressure 133/84 06/30/21 23:25 Pulse Oximetry 99
[2021-06-30 19:58] LABS: Reflex Lactic Acid Yes or No Add Lactic
[2021-06-30 20:26] LABS: Lactic Acid 1.8 mmol/L (0.7-2.1)
[2021-06-30] MEDS: GABAPENTIN 300 MG CAPSULE PO (21:08)
[2021-06-30] MEDS: MECLIZINE HCL 25 MG TABLET PO (21:08)
--- NOTE | 2021-06-30 21:51 | PC.NURSE ---
patient is incont of urine and unable to preform straight cath due to pressure ulcer on penis/scrotum
--- NOTE | 2021-06-30 23:27 | PC.NURSE ---
pt refused johnson cath
[2021-07-01 01:25] VITALS: BP 162/83; PULSE 107; RESP 20; O2SAT 100
--- NOTE | 2021-07-01 02:42 | ADMGEN ---
This patient, Parish Keita, was admitted to Medical Room 247-. Patient/family oriented to hospital policies and general routines including ID bracelet, bed and alarms, visiting hours, pain management, procedures, bathroom and other care routines, personal items, smoking policy, room service/diet, and visiting hours. Information on how to activate the Rapid Response Team has been discussed. Patient/Family are encouraged to report perceived risks to care and to ask questions if they do not understand what they are told or what they should do.
[2021-07-01] MEDS: SODIUM CHLORIDE 0.9% IV 1,000 ML 125 ML IV CONT (03:17)
[2021-07-01 03:27] LABS: Glucose Point of Care 165 mg/dl (65-105)
[2021-07-01 03:38] VITALS: BMI 15.4
[2021-07-01 03:41] VITALS: BP 157/75; PULSE 100; RESP 16; TEMP 36.4; O2SAT 100
--- NOTE | 2021-07-01 04:32 | PC.NURSE ---
Patient refused straight catheter, urine sample obtained by clean catch.
[2021-07-01 05:01] LABS: Add Urine Microscopic? YES; Appearance Urine Cloudy (Clear); Bilirubin Urine Negative (Negative); Blood Urine 1+ (Negative); Color Urine Yellow (Yellow); Glucose Urine UA Negative (Negative); Ketones Urine Negative (Negative); Leukocyte Esterase Ur 2+ LEU/UL (Negative); Mucus Urine Few /lpf; Nitrate Urine Negative (Negative); Protein Urine 2+ mg/dL (Negative); RBC Urine 21-50 /hpf (0-2); Squamous Epithelial Cell Urine Rare /hpf (Few); Urobilinogen Urine Negative mg/dL (<2.0); WBC Clumps Urine Present /HPF; WBC Urine >75 /hpf
[2021-07-01 06:00] VITALS: BP 127/72; PULSE 99; RESP 16; TEMP 36.9; O2SAT 99
[2021-07-01 08:19] LABS: Glucose Point of Care 137 mg/dl (65-105)
--- NOTE | 2021-07-01 09:34 | PM.IMHP ---
H&P: HPI History of Present Illness Date/Time: 07/01/21 09:34 Chief Complaint: Generalized weakness Narrative: 71 years old male with history of stroke, wheelchair-bound, diabetes, hypertension, recently being discharged from [facility] and staying home alone with caregivers visits was admitted through the emergency with a complaint that patient was found lying down on the floor at home with fecal material and urine spill around him. Patient was brought in the ER through the number lens as caregiver called 911. Patient was given IV antibiotics and cultures were done in the [facility] and was transferred to floor for further evaluation treatment. At present time patient is alert and awake. His weakness is also slightly better. Patient denies any shortness of breath or chest pain. No abdominal pain, no nausea, no vomiting, mood stable. Review of Systems Review of Systems: All systems reviewed & are unremarkable except as noted in HPI and below (the history and physical examination.) [facility] Family History Family History Father Heart attack Other Breast cancer Social History Social History Smoking status: Never smoker Alcohol intake: never Substance use: never Substance use type: does not use Spiritual care concerns: No Meds Home Medications and Allergies Home Medications Medication Instructions Recorded Confirmed Type amlodipine [Norvasc] 10 mg PO DAILY 04/25/21 07/01/21 History atorvastatin 20 mg PO DAILY 04/25/21 07/01/21 History cefdinir 300 mg PO Q12H #20 cap 04/25/21 07/01/21 Rx clopidogrel 75 mg PO DAILY 04/25/21 07/01/21 History gabapentin 300 mg PO DAILY 04/25/21 07/01/21 History losartan 100 mg PO DAILY 04/25/21 07/01/21 History meclizine 25 mg PO TID PRN #30 tablet 04/25/21 07/01/21 Rx metformin 500 mg PO DAILY 04/25/21 07/01/21 History ropinirole 2 mg PO DAILY 04/25/21 07/01/21 History mhhgpnl-kvhbrcwo-fcfrpu comb 1 tab-cap PO DAILY 04/25/21 07/01/21 History xpeiluz-iuxd-yfvvq-oreg-capryl 1 cap PO DAILY 04/25/21 07/01/21 History zolpidem 5 mg PO DAILY 04/25/21 07/01/21 History docusate sodium 200 mg PO Q12HR #30 cap 05/06/21 07/01/21 Rx hyoscyamine sulfate [Anaspaz] 0.125 mg PO Q4H PRN #30 tablet 05/06/21 07/01/21 Rx lactulose 10 g PO DAILY PRN #473 ml MDD 30 mL 05/06/21 07/01/21 Rx Allergies Allergy/AdvReac Type Severity Reaction Status Date / Time No Known Drug Allergies Allergy Unknown Other Verified 06/30/21 16:07 Vital Signs Vital Signs - 24 hr 06/30/21 16:01 06/30/21 16:21 06/30/21 16:30 Temperature Pulse Rate 100 105 H 91 Respiratory Rate 18 18 18 Blood Pressure 132/92 H Pulse Oximetry 100 100 100 06/30/21 16:45 06/30/21 17:00 06/30/21 17:15 Temperature Pulse Rate 90 91 90 Respiratory Rate 15 16 15 Blood Pressure Pulse Oximetry 100 100 100 06/30/21 17:30 06/30/21 17:45 06/30/21 18:00 Temperature Pulse Rate 93 89 85 Respiratory Rate 15 20 23 H Blood Pressure 119/89 Pulse Oximetry 100 06/30/21 18:15 06/30/21 18:30 06/30/21 19:46 Temperature Pulse Rate 96 91 76 Respiratory Rate 34 H 14 18 Blood Pressure 132/76 Pulse Oximetry 99 06/30/21 23:25 07/01/21 01:25 07/01/21 03:41 Temperature 36.4 C Pulse Rate 104 H 107 H 100 Respiratory Rate 18 20 16 Blood Pressure 133/84 162/83 H 157/75 H Pulse Oximetry 99 100 100 07/01/21 06:00 Temperature 36.9 C Pulse Rate 99 Respiratory Rate 16 Blood Pressure 127/72 Pulse Oximetry 99 Exam Const: General: cooperative and no acute distress Orientation/consciousness: oriented to person, oriented to place, oriented to time and patient oriented x3 HENMT: Head: normal to inspection Ears: hearing grossly normal bilaterally and external ears normal General nose exam: Normal external nose present Face and sinus: normal facial exam Mouth: Yes Normal oral and palatal mucos
--- NOTE | 2021-07-01 11:44 | WPDURCON ---
Assessment and Plan Assessment and plan (1) Bladder wall thickening: Code(s): N32.89 - Other specified disorders of bladder Status: Acute Assessment and Plan: 1. Atypical appearance on CT scan, the patient would benefit from cystoscopy as an outpatient, I recommended he follow up with either myself or one of my partners to arrange a cystoscopy. 2. Voided cytology-ordered and discussed with nursing. (2) Urinary retention: Code(s): R33.9 - Retention of urine, unspecified Status: Acute Assessment and Plan: The patient has a history of urinary retention and is adamant that he would not consider a catheter if recommended. Consider initiation of tamsulosin or other alpha mi if acceptable to Hospital Medicine Service. Urology Consult Note HPI Date Seen: 07/01/21 Requesting Physician: Denita Betancourt DO Primary Care Provider: Flako Lackey MD Consult Narrative Narrative: Parish Keita is a 71 year old male who was brought to the [facility] ER for failure to thrive after being found down, presumably for several days at home. Urology is consulted for findings of a thickened bladder wall on CT scan. The patient is on Plavix for CVA prophylaxis. He suffers from left hemiplegia. He has a history of urinary tract infections, and his urine in the ER appeared infected. He was started on vancoymicin and zosyn on admission. He denies hematuria but reports chronic UTIs. He has been seen in the past by my partner, Dr. Sands who had contemplated a catheter, however the patient states he would adamantly refuse a catheter if recommended. Review of Systems Constitutional: Constitutional: Reports no additional constitutional complaints Cardiovascular: Cardiovascular: Reports as per HPI Respiratory: Respiratory: Reports as per HPI Gastrointestinal: Gastrointestinal: Reports as per HPI Genitourinary: Genitourinary: Reports as per HPI Neurologic: Reports frequent falls PMFSH Family History Family History Father Heart attack Other Breast cancer Social History Social History Smoking status: Never smoker Alcohol intake: never Substance use: never Substance use type: does not use Spiritual care concerns: No Meds Home Medications and Allergies Home Medications Medication Instructions Recorded Confirmed Type amlodipine [Norvasc] 10 mg PO DAILY 04/25/21 07/01/21 History atorvastatin 20 mg PO DAILY 04/25/21 07/01/21 History cefdinir 300 mg PO Q12H #20 cap 04/25/21 07/01/21 Rx clopidogrel 75 mg PO DAILY 04/25/21 07/01/21 History gabapentin 300 mg PO DAILY 04/25/21 07/01/21 History losartan 100 mg PO DAILY 04/25/21 07/01/21 History meclizine 25 mg PO TID PRN #30 tablet 04/25/21 07/01/21 Rx metformin 500 mg PO DAILY 04/25/21 07/01/21 History ropinirole 2 mg PO DAILY 04/25/21 07/01/21 History ykvbhat-prbjojmk-nhcyyu comb 1 tab-cap PO DAILY 04/25/21 07/01/21 History djayrgp-bnbv-vifcm-oreg-capryl 1 cap PO DAILY 04/25/21 07/01/21 History zolpidem 5 mg PO DAILY 04/25/21 07/01/21 History docusate sodium 200 mg PO Q12HR #30 cap 05/06/21 07/01/21 Rx hyoscyamine sulfate [Anaspaz] 0.125 mg PO Q4H PRN #30 tablet 05/06/21 07/01/21 Rx lactulose 10 g PO DAILY PRN #473 ml MDD 30 mL 05/06/21 07/01/21 Rx Allergies Allergy/AdvReac Type Severity Reaction Status Date / Time No Known Drug Allergies Allergy Unknown Other Verified 06/30/21 16:07 Vital Signs Vital Signs - 24 hr 06/30/21 16:01 06/30/21 16:21 06/30/21 16:30 Temperature Pulse Rate 100 105 H 91 Respiratory Rate 18 18 18 Blood Pressure 132/92 H Pulse Oximetry 100 100 100 06/30/21 16:45 06/30/21 17:00 06/30/21 17:15 Temperature Pulse Rate 90 91 90 Respiratory Rate 15 16 15 Blood Pressure Pulse Oximetry 100 100 100 06/30/21 17:30 06/30/21 17:45 06/30/21 18:00 Temperature Pulse Rate 93 89 85 Respiratory Rat
--- NOTE | 2021-07-01 12:52 | PC.NURSE ---
pt's friend/POA, Vinay Kohli, called asking about an update on pt. Vinay informed me that he is NOT the POA for pt, nothing legally has been done, and he is not interested in getting anything legally done. He suggested that I speak with the brother; however, pt has made it clear that he wants to contact or information given to his brothers. Vinay also informed me that pt's brother told him that pt is fine and doing well and his living conditions (which have been condemned due to infestation and mold) were fine. pt was found to have bed bugs, including a casing in the wound bed, and bug bites all over his backside. Mitigation was done. I informed Vinay, clothes, etc. from pt's home are NOT to be brought to the hospital as a result of all this.
[2021-07-01 13:12] VITALS: BMI 15.4
[2021-07-01] MEDS: CLOPIDOGREL BISULFATE 75 MG TABLET PO (13:27)
[2021-07-01] MEDS: LOSARTAN POTASSIUM 100 MG TABLET PO (13:27)
[2021-07-01] MEDS: amLODIPine BESYLATE 5 MG TABLET 10 MG PO (13:27)
[2021-07-01] MEDS: ATORVASTATIN 20 MG TABLET PO (13:27)
[2021-07-01] MEDS: metFORMIN HCL 500 MG TABLET PO (13:27)
[2021-07-01] MEDS: DOCUSATE SODIUM 100 MG CAPSULE 200 MG PO ×2 (13:27→20:15)
[2021-07-01 14:00] VITALS: BP 137/75; PULSE 99; RESP 16; TEMP 36.6; O2SAT 98
--- NOTE | 2021-07-01 14:00 | PC.NURSE ---
Per Kirti Hand with APS, pt's history was examined to determine if pt went to [facility] with ulcerations. Pt's last skin eval was on 05/06/21 1600 where pt had a rash/bruised right buttock and a bilateral axilla rash. This information was also shared with [facility].
--- NOTE | 2021-07-01 15:15 | PC.NURSE ---
pt was reminded that we need a urine sample in order to run tests. pt stated he had not urinated nor felt the need to do so. About 10 minutes later, pt began screaming and had urinated on himself in what appeared to be about 20-30 mL. I conducted a bladder scan which revealed pt had about 188mL of urine still in the bladder. I was going to straight cath pt in order to get a clean sample since pt was apparently incontinent; however, pt refused. Pt suggested that I put my head together and come up with something else. Pt then suggested that I use a vacuum and suck it out through his skin. I calmly attempted to explain again to pt that was not an option. I contacted Dr Olson to make him aware of the situation and pt's refusal for any type of cath procedure. Dr. Olson instructed me document the conversation and not to pursue it any further.
--- NOTE | 2021-07-01 15:42 | PCPTNOTE ---
attempted PT evaluation; pt refused.
[2021-07-01 16:13] LABS: Glucose Point of Care 199 mg/dl (65-105)
[2021-07-01 16:23] LABS: Glucose Point of Care 179 mg/dl (65-105)
[2021-07-01] MEDS: SODIUM CHLORIDE 0.9% IV 1,000 ML 83 ML IV CONT (17:40)
[2021-07-01 20:15] VITALS: BP 104/77; PULSE 101; RESP 18; TEMP 36.1; O2SAT 96
[2021-07-01] MEDS: GABAPENTIN 300 MG CAPSULE PO (20:17)
[2021-07-01] MEDS: HEPARIN SODIUM 5,000 UNITS/ML VIAL 5000 UNITS SUB-Q (20:17)
[2021-07-01] MEDS: rOPINIRole HCL 1 MG TABLET 2 MG PO (20:19)
[2021-07-01 21:21] LABS: Glucose Point of Care 191 mg/dl (65-105)
[2021-07-01] MEDS: ZOLPIDEM TARTRATE (*CRX) 5 MG TABLET PO (23:48)
[2021-07-02 04:07] VITALS: BP 127/65; PULSE 88; RESP 18; TEMP 36.9; O2SAT 99
[2021-07-02 06:14] LABS: Basophils Percent Auto 0.1 % (0.2-1.2); Eosinophils Percent Auto 0.2 % (0-4.4); Hematocrit 32.7 % (42.0-52.0); Hemoglobin 10.5 g/dL (14.0-18.0); Immature Granulocyte Absolute 0.13 K/mm3 (0.00-0.031); Immature Granulocyte Percent A 0.8 % (0-0.5); Lymphocytes Absolute Auto 2.22 K/mm3 (0.9-3.2); Mean Corpuscular HGB Conc 32.1 g/dl (32-36); Mean Corpuscular Hemoglobin 30.4 pg (26-34); Mean Corpuscular Volume 94.8 fl (80-100); Mean Platelet Volume 9.4 fl (7.4-10.4); Monocytes Absolute Auto 1.1 K/mm3 (0.1-0.6); Monocytes Percent Auto 6.3 % (2.6-8.5); Neutrophils Absolute Auto 13.6 K/mm3 (1.3-6.7); Neutrophils Percent Auto 79.6 % (45.5-73.1); Platelet Count Result 296 k/mm3 (150-375); Red Blood Count 3.45 M/mm3 (4.6-6.20); Red Cell Distribution Width 13.8 % (11.5-14.5); White Blood Count 17.1 K/mm3 (4.5-10.0)
[2021-07-02 06:55] LABS: Alanine Aminotransferase 50 U/L (4-50); Albumin Level 2.4 g/dL (3.5-5.1); Alkaline Phosphatase 96 U/L (38-126); Anion Gap 5 mmol/L (8-16); Aspartate Amino Transferase 57 U/L (17-59); Bilirubin,Total 0.7 mg/dL (0.2-1.3); Blood Urea Nitrogen 19 mg/dL (9-20); Calcium 8.2 mg/dL (8.4-10.2); Carbon Dioxide 24 mmol/L (22-30); Chloride 111 mmol/L (98-107); Estimated CRCL calculation 72 ml/min; Estimated Glomerular Filt Rate > 60; Glucose 125 mg/dL (65-110); Potassium 3.2 mmol/L (3.4-5.0); Sodium 140 mmol/L (137-145)
[2021-07-02 08:01] LABS: Glucose Point of Care 137 mg/dl (65-105)
--- NOTE | 2021-07-02 08:44 | PM.IMPN ---
Progress Note: A&P Assessment and Plan (1) Acute UTI: Code(s): N39.0 - Urinary tract infection, site not specified Status: Acute Assessment and Plan: Urine culture and IV antibiotics. (2) Hemiplegia affecting left nondominant side: Qualifiers: Hemiplegia type: unspecified type Hemiplegia etiology: unspecified etiology Qualified Code(s): G81.94 - Hemiplegia, unspecified affecting left nondominant side Code(s): G81.94 - Hemiplegia, unspecified affecting left nondominant side Status: Acute Assessment and Plan: Bedsore and falling precautions (3) Hypertension: Code(s): I10 - Essential (primary) hypertension Status: Acute Assessment and Plan: Start meds and monitor patient blood pressure closely. (4) Diabetes: Code(s): E11.9 - Type 2 diabetes mellitus without complications Status: Acute Assessment and Plan: Sliding scale insulin and monitor glucose closely. (5) History of stroke: Code(s): Z86.73 - Personal history of transient ischemic attack (TIA), and cerebral infarction without residual deficits Status: Acute Assessment and Plan: Falling and bedsore precaution Additional Plan Patient is full code. Care coordination consult for possible long-term placement. Patient stay for more than 2 days in the hospital. July 02, 2021 Patient cultures are pending patient WBC count is improving. Potassium was low and replaced. Plan is to continue current treatment and consult care coordination for our long-term placement. Subjective Date/time seen: 07/02/21 08:44 Patient was seen during the morning rounds today. Patient is more awake and alert. No shortness of breath or chest pain. No abdominal pain, nausea, no vomiting. Mood stable. Review of Systems Review of Systems: All systems reviewed & are unremarkable except as noted in HPI and below (the history and physical examination.) Exam Const: General: cooperative and no acute distress Orientation/consciousness: oriented to person, oriented to place, oriented to time and patient oriented x3 HENMT: Head: normal to inspection Ears: hearing grossly normal bilaterally and external ears normal General nose exam: Normal external nose present Face and sinus: normal facial exam Mouth: Yes Normal oral and palatal mucosa present Eyes: General: appearance normal, both eyes and all related structures Neck: Neck: normal visual inspection and full ROM Chest: Chest palpation & inspection: normal inspection of the chest and normal palpation of entire chest wall Resp: Effort & Inspection: normal respiratory effort Auscultation: clear to auscultation bilaterally Cardio: Jugular venous distension: no JVD Palpation: normal PMI Rate: regular rate Heart sounds: S1 normal heart sound present and S2 normal heart sound present GI: Inspection: normal to inspection Neuro: General: oriented to person, oriented to place, oriented to time and patient oriented x3 Cranial nerves: Yes CN's II-XII intact bilaterally Speech: normal speech Gait exam (Neuro): Normal gait present Motor exam (neuro): 5/5 motor strength present throughout Sensory Exam: normal sensation Psych: Appearance: grossly normal Objective Data Vital Signs Vital Signs: Vital Signs - 24 hr 07/01/21 14:00 07/01/21 20:15 07/02/21 04:07 Temperature 36.6 C 36.1 C L 36.9 C Pulse Rate 99 101 H 88 Respiratory Rate 16 18 18 Blood Pressure 137/75 104/77 127/65 Pulse Oximetry 98 96 99 Intake/Output Intake/Output: Intake & Output 06/29/21 06/30/21 07/01/21 07/02/21 23:59 23:59 23:59 23:59 Intake Total 2300 2230 630 Output Total 150 Balance 2300 2080 630 Meds/Results Medications: Active Medications Generic Name Dose Route Start Last Admin Trade Name Andreaq PRN Reason Stop Dose Admin Amlodipine Besylate 10 mg 07/01/21 09:00 07/01/21 13:27 Amlodipine Besylate 5 Mg Tablet PO 10 mg DAILY S
[2021-07-02] MEDS: metFORMIN HCL 500 MG TABLET PO (09:31)
[2021-07-02] MEDS: LOSARTAN POTASSIUM 100 MG TABLET PO (09:31)
[2021-07-02] MEDS: HEPARIN SODIUM 5,000 UNITS/ML VIAL 5000 UNITS SUB-Q ×2 (09:31→20:48)
[2021-07-02] MEDS: ATORVASTATIN 20 MG TABLET PO (09:31)
[2021-07-02] MEDS: amLODIPine BESYLATE 5 MG TABLET 10 MG PO (09:31)
[2021-07-02] MEDS: CLOPIDOGREL BISULFATE 75 MG TABLET PO (09:31)
[2021-07-02] MEDS: SODIUM CHLORIDE 0.9% IV 1,000 ML 83 ML IV CONT ×2 (09:32→23:22)
[2021-07-02] MEDS: POTASSIUM CHLORIDE 20 MEQ TABLET 40 MEQ PO (09:33)
[2021-07-02] MEDS: MAGNESIUM OXIDE 400 MG TABLET PO (09:33)
--- NOTE | 2021-07-02 11:03 | PCOTNOTE ---
Patient refused multiple attempts to participate in OT services on this date. Patient stated that he was napping and did not want to be disturbed. Will attempt tomorrow.
[2021-07-02 11:28] LABS: Glucose Point of Care 182 mg/dl (65-105)
[2021-07-02] MEDS: MECLIZINE HCL 25 MG TABLET PO (12:35)
[2021-07-02 14:00] VITALS: BP 118/54; PULSE 96; RESP 18; TEMP 36.4; O2SAT 98
[2021-07-02 16:43] LABS: Glucose Point of Care 148 mg/dl (65-105)
--- NOTE | 2021-07-02 19:27 | PC.NURSE ---
Pt has multiple wounds all over his body. Some areas on leg appear to have black tissue. Wound nurse has not had an evaluation of his wounds or wound care orders at this time.
[2021-07-02] MEDS: rOPINIRole HCL 1 MG TABLET 2 MG PO (20:47)
[2021-07-02] MEDS: ZOLPIDEM TARTRATE (*CRX) 5 MG TABLET PO (20:48)
[2021-07-02] MEDS: GABAPENTIN 300 MG CAPSULE PO (20:48)
[2021-07-02 21:00] LABS: Glucose Point of Care 143 mg/dl (65-105)
[2021-07-02 22:00] VITALS: BP 138/73; PULSE 99; RESP 20; TEMP 36.3; O2SAT 98
[2021-07-03 00:48] LABS: Vancomycin Trough 5.5 ug/mL (10.0-20.0)
[2021-07-03 06:00] VITALS: BP 131/69; PULSE 90; RESP 20; TEMP 36.2; O2SAT 99
[2021-07-03 06:23] LABS: Basophils Percent Auto 0.1 % (0.2-1.2); Eosinophils Absolute Auto 0.1 K/mm3 (0-0.3); Eosinophils Percent Auto 0.4 % (0-4.4); Hematocrit 30.1 % (42.0-52.0); Hemoglobin 9.8 g/dL (14.0-18.0); Immature Granulocyte Absolute 0.14 K/mm3 (0.00-0.031); Immature Granulocyte Percent A 0.8 % (0-0.5); Lymphocytes Absolute Auto 2.18 K/mm3 (0.9-3.2); Mean Corpuscular HGB Conc 32.6 g/dl (32-36); Mean Corpuscular Hemoglobin 30.1 pg (26-34); Mean Corpuscular Volume 92.3 fl (80-100); Mean Platelet Volume 9.4 fl (7.4-10.4); Neutrophils Absolute Auto 13.3 K/mm3 (1.3-6.7); Neutrophils Percent Auto 79.7 % (45.5-73.1); Platelet Count Result 302 k/mm3 (150-375); Red Blood Count 3.26 M/mm3 (4.6-6.20); Red Cell Distribution Width 13.4 % (11.5-14.5); White Blood Count 16.7 K/mm3 (4.5-10.0)
[2021-07-03 06:30] LABS: Alanine Aminotransferase 52 U/L (4-50); Albumin Level 2.4 g/dL (3.5-5.1); Alkaline Phosphatase 90 U/L (38-126); Anion Gap 0 mmol/L (8-16); Aspartate Amino Transferase 49 U/L (17-59); Bilirubin,Total 0.7 mg/dL (0.2-1.3); Blood Urea Nitrogen 13 mg/dL (9-20); Calcium 7.8 mg/dL (8.4-10.2); Carbon Dioxide 29 mmol/L (22-30); Chloride 107 mmol/L (98-107); Estimated CRCL calculation 85 ml/min; Estimated Glomerular Filt Rate > 60; Glucose 127 mg/dL (65-110); Potassium 3.3 mmol/L (3.4-5.0); Sodium 136 mmol/L (137-145)
[2021-07-03 07:59] LABS: Glucose Point of Care 102 mg/dl (65-105)
[2021-07-03 08:00] VITALS: PULSE 90; RESP 20; O2SAT 99
[2021-07-03] MEDS: metFORMIN HCL 500 MG TABLET PO (08:43)
[2021-07-03] MEDS: ATORVASTATIN 20 MG TABLET PO (08:43)
[2021-07-03] MEDS: LOSARTAN POTASSIUM 100 MG TABLET PO (08:43)
[2021-07-03] MEDS: CLOPIDOGREL BISULFATE 75 MG TABLET PO (08:43)
[2021-07-03] MEDS: MAGNESIUM OXIDE 400 MG TABLET PO (08:43)
[2021-07-03] MEDS: amLODIPine BESYLATE 5 MG TABLET 10 MG PO (08:43)
[2021-07-03] MEDS: HEPARIN SODIUM 5,000 UNITS/ML VIAL 5000 UNITS SUB-Q ×2 (08:44→20:12)
[2021-07-03] MEDS: LACTULOSE 20 GM/30 ML UDC 10 GM PO (08:44)
[2021-07-03] MEDS: DOCUSATE SODIUM 100 MG CAPSULE 200 MG PO (08:44)
--- NOTE | 2021-07-03 09:45 | PM.IMPN ---
Progress Note: A&P Assessment and Plan (1) Acute UTI: Code(s): N39.0 - Urinary tract infection, site not specified Status: Acute Assessment and Plan: Urine culture and IV antibiotics. (2) Hemiplegia affecting left nondominant side: Qualifiers: Hemiplegia type: unspecified type Hemiplegia etiology: unspecified etiology Qualified Code(s): G81.94 - Hemiplegia, unspecified affecting left nondominant side Code(s): G81.94 - Hemiplegia, unspecified affecting left nondominant side Status: Acute Assessment and Plan: Bedsore and falling precautions (3) Hypertension: Code(s): I10 - Essential (primary) hypertension Status: Acute Assessment and Plan: Start meds and monitor patient blood pressure closely. (4) Diabetes: Code(s): E11.9 - Type 2 diabetes mellitus without complications Status: Acute Assessment and Plan: Sliding scale insulin and monitor glucose closely. (5) History of stroke: Code(s): Z86.73 - Personal history of transient ischemic attack (TIA), and cerebral infarction without residual deficits Status: Acute Assessment and Plan: Falling and bedsore precaution Additional Plan Patient is full code. Care coordination consult for possible fdc placement. Patient stay for more than 2 days in the hospital. July 02, 2021 Patient cultures are pending patient WBC count is improving. Potassium was low and replaced. Plan is to continue current treatment and consult care coordination for our fdc placement. July 03, 2021 WBC is trending down, will repeat CBC in the morning Potassium is slightly low will replace and monitor. Plan is to continue current treatment monitor culture reports. Subjective Date/time seen: 07/03/21 09:45 Patient was seen during the morning rounds today. Looks slightly better. No shortness of breath or chest pain. No abdominal pain, nausea, no vomiting. Mood stable. Review of Systems Review of Systems: All systems reviewed & are unremarkable except as noted in HPI and below (the history and physical examination.) Exam Const: General: cooperative and no acute distress Orientation/consciousness: oriented to person, oriented to place, oriented to time and patient oriented x3 HENMT: Head: normal to inspection Ears: hearing grossly normal bilaterally and external ears normal General nose exam: Normal external nose present Face and sinus: normal facial exam Mouth: Yes Normal oral and palatal mucosa present Eyes: General: appearance normal, both eyes and all related structures Neck: Neck: normal visual inspection and full ROM Chest: Chest palpation & inspection: normal inspection of the chest and normal palpation of entire chest wall Resp: Effort & Inspection: normal respiratory effort Auscultation: clear to auscultation bilaterally Cardio: Jugular venous distension: no JVD Palpation: normal PMI Rate: regular rate Heart sounds: S1 normal heart sound present and S2 normal heart sound present GI: Inspection: normal to inspection Neuro: General: oriented to person, oriented to place, oriented to time and patient oriented x3 Cranial nerves: Yes CN's II-XII intact bilaterally Speech: normal speech Gait exam (Neuro): Normal gait present Motor exam (neuro): 5/5 motor strength present throughout Sensory Exam: normal sensation Psych: Appearance: grossly normal Objective Data Vital Signs Vital Signs: Vital Signs - 24 hr 07/02/21 14:00 07/02/21 22:00 07/03/21 06:00 Temperature 36.4 C 36.3 C L 36.2 C L Pulse Rate 96 99 90 Respiratory Rate 18 20 20 Blood Pressure 118/54 L 138/73 131/69 Pulse Oximetry 98 98 99 Intake/Output Intake/Output: Intake & Output 06/30/21 07/01/21 07/02/21 07/03/21 23:59 23:59 23:59 23:59 Intake Total 2300 2230 3452 420 Output Total 150 Balance 2300 2080 3452 420 Meds/Results Medications: Active Medications Generic Name Dos
[2021-07-03 11:44] LABS: Glucose Point of Care 147 mg/dl (65-105)
[2021-07-03] MEDS: POTASSIUM CHLORIDE 20 MEQ TABLET 40 MEQ PO (12:07)
[2021-07-03 14:00] VITALS: BP 126/67; PULSE 94; RESP 20; TEMP 36.2; O2SAT 97
[2021-07-03] MEDS: ACETAMINOPHEN 325 MG TABLET 650 MG PO (15:00)
[2021-07-03] MEDS: CALCIUM CARBONATE (TUMS) 500 MG (200 MG ELEMENTAL) PO (15:03)
[2021-07-03] MEDS: SODIUM CHLORIDE 0.9% IV 1,000 ML 83 ML IV CONT (15:07)
[2021-07-03 16:30] LABS: Glucose Point of Care 165 mg/dl (65-105)
--- NOTE | 2021-07-03 19:48 | PC.NURSE ---
Nurse spoke with Dr Fernandez regarding patient's extensive wounds & lack of wound care orders. Dr Fernandez said, Consult Wound Nurse. Dr Fernandez was told that a consult for wound care has been ordered since Sunday and there are no wound care nurses on the weekend the patient still has no orders. The wounds are still open to air. Physician says, Okay. Okay.
[2021-07-03] MEDS: rOPINIRole HCL 1 MG TABLET 2 MG PO (20:13)
[2021-07-03] MEDS: GABAPENTIN 300 MG CAPSULE PO (20:13)
[2021-07-03 21:55] LABS: Glucose Point of Care 138 mg/dl (65-105)
[2021-07-03 22:00] VITALS: BP 133/57; PULSE 86; RESP 20; TEMP 36.1; O2SAT 98
[2021-07-04 06:00] VITALS: BP 154/71; PULSE 85; RESP 21; TEMP 36.1; O2SAT 100
[2021-07-04 06:08] LABS: Basophils Percent Auto 0.1 % (0.2-1.2); Eosinophils Absolute Auto 0.1 K/mm3 (0-0.3); Eosinophils Percent Auto 0.8 % (0-4.4); Hematocrit 27.9 % (42.0-52.0); Hemoglobin 9.3 g/dL (14.0-18.0); Immature Granulocyte Absolute 0.19 K/mm3 (0.00-0.031); Lymphocytes Absolute Auto 1.86 K/mm3 (0.9-3.2); Lymphocytes Percent Auto 10.2 % (18.3-44.2); Mean Corpuscular HGB Conc 33.3 g/dl (32-36); Mean Corpuscular Hemoglobin 30.2 pg (26-34); Mean Corpuscular Volume 90.6 fl (80-100); Mean Platelet Volume 9.4 fl (7.4-10.4); Monocytes Percent Auto 5.4 % (2.6-8.5); Neutrophils Percent Auto 82.5 % (45.5-73.1); Platelet Count Result 290 k/mm3 (150-375); Red Blood Count 3.08 M/mm3 (4.6-6.20); Red Cell Distribution Width 13.2 % (11.5-14.5); White Blood Count 18.2 K/mm3 (4.5-10.0)
[2021-07-04 06:36] LABS: Alanine Aminotransferase 48 U/L (4-50); Albumin Level 2.1 g/dL (3.5-5.1); Alkaline Phosphatase 82 U/L (38-126); Anion Gap 1 mmol/L (8-16); Aspartate Amino Transferase 47 U/L (17-59); Bilirubin,Total 0.7 mg/dL (0.2-1.3); Blood Urea Nitrogen 7 mg/dL (9-20); Calcium 7.5 mg/dL (8.4-10.2); Carbon Dioxide 26 mmol/L (22-30); Chloride 105 mmol/L (98-107); Estimated CRCL calculation 85 ml/min; Estimated Glomerular Filt Rate > 60; Glucose 132 mg/dL (65-110); Potassium 3.5 mmol/L (3.4-5.0); Sodium 132 mmol/L (137-145)
[2021-07-04] MEDS: SODIUM CHLORIDE 0.9% IV 1,000 ML 83 ML IV CONT ×2 (06:46→20:37)
[2021-07-04 07:36] LABS: Glucose Point of Care 117 mg/dl (65-105)
--- NOTE | 2021-07-04 10:06 | PM.IMPN ---
Progress Note: A&P Assessment and Plan (1) Acute UTI: Code(s): N39.0 - Urinary tract infection, site not specified Status: Acute Assessment and Plan: Urine culture and IV antibiotics. (2) Hemiplegia affecting left nondominant side: Qualifiers: Hemiplegia etiology: unspecified etiology Hemiplegia type: unspecified type Qualified Code(s): G81.94 - Hemiplegia, unspecified affecting left nondominant side Code(s): G81.94 - Hemiplegia, unspecified affecting left nondominant side Status: Acute Assessment and Plan: Bedsore and falling precautions (3) Hypertension: Code(s): I10 - Essential (primary) hypertension Status: Acute Assessment and Plan: Start meds and monitor patient blood pressure closely. (4) Diabetes: Code(s): E11.9 - Type 2 diabetes mellitus without complications Status: Acute Assessment and Plan: Sliding scale insulin and monitor glucose closely. (5) History of stroke: Code(s): Z86.73 - Personal history of transient ischemic attack (TIA), and cerebral infarction without residual deficits Status: Acute Assessment and Plan: Falling and bedsore precaution (6) Skin infection: Code(s): L08.9 - Local infection of the skin and subcutaneous tissue, unspecified Status: Acute Assessment and Plan: On antibiotic. Monitor culture Additional Plan Patient is full code. Care coordination consult for possible skilled nursing placement. Patient stay for more than 2 days in the hospital. July 02, 2021 Patient cultures are pending patient WBC count is improving. Potassium was low and replaced. Plan is to continue current treatment and consult care coordination for our skilled nursing placement. July 03, 2021 WBC is trending down, will repeat CBC in the morning Potassium is slightly low will replace and monitor. Plan is to continue current treatment monitor culture reports. July 04, 2021 No new overnight complaints. Clinically patient is much better. Plan is to continue current treatment, adjust antibiotic according the culture report. business continuity coordinator is working on placement. Subjective Date/time seen: 07/04/21 10:06 Patient was seen during the morning rounds today. Patient is more awake and alert. No shortness of breath or chest pain. No abdominal pain, nausea, vomiting, mood stable. Review of Systems Review of Systems: All systems reviewed & are unremarkable except as noted in HPI and below (the history and physical examination.) Exam Const: General: cooperative and no acute distress Orientation/consciousness: oriented to person, oriented to place, oriented to time and patient oriented x3 HENMT: Head: normal to inspection Ears: hearing grossly normal bilaterally and external ears normal General nose exam: Normal external nose present Face and sinus: normal facial exam Mouth: Yes Normal oral and palatal mucosa present Eyes: General: appearance normal, both eyes and all related structures Neck: Neck: normal visual inspection and full ROM Chest: Chest palpation & inspection: normal inspection of the chest and normal palpation of entire chest wall Resp: Effort & Inspection: normal respiratory effort Auscultation: clear to auscultation bilaterally Cardio: Jugular venous distension: no JVD Palpation: normal PMI Rate: regular rate Heart sounds: S1 normal heart sound present and S2 normal heart sound present GI: Inspection: normal to inspection Skin: Other: Multiple superficial ulcers in the lower back area Neuro: General: oriented to person, oriented to place, oriented to time and patient oriented x3 Cranial nerves: Yes CN's II-XII intact bilaterally Speech: normal speech Gait exam (Neuro): Normal gait present Motor exam (neuro): 5/5 motor strength present throughout Sensory Exam: normal sensation Psych: Appearance: grossly normal Objective Data Vital Signs Vital Signs: Vital Sig
[2021-07-04] MEDS: HEPARIN SODIUM 5,000 UNITS/ML VIAL 5000 UNITS SUB-Q ×2 (10:16→20:41)
[2021-07-04] MEDS: CLOPIDOGREL BISULFATE 75 MG TABLET PO (10:16)
[2021-07-04] MEDS: ATORVASTATIN 20 MG TABLET PO (10:17)
[2021-07-04] MEDS: amLODIPine BESYLATE 5 MG TABLET 10 MG PO (10:17)
[2021-07-04] MEDS: MAGNESIUM OXIDE 400 MG TABLET PO (10:17)
[2021-07-04] MEDS: metFORMIN HCL 500 MG TABLET PO (10:17)
[2021-07-04] MEDS: LOSARTAN POTASSIUM 100 MG TABLET PO (10:17)
[2021-07-04] MEDS: ACETAMINOPHEN 325 MG TABLET 650 MG PO (10:23)
[2021-07-04] MEDS: CALCIUM CARBONATE (TUMS) 500 MG (200 MG ELEMENTAL) PO (10:23)
[2021-07-04 12:31] LABS: Glucose Point of Care 202 mg/dl (65-105)
--- NOTE | 2021-07-04 12:40 | PC.NURSE ---
sugar was checked 30 mins after pt had eaten his entire lunch and was 202, no insulin given r/t timing of accucheck
[2021-07-04 13:36] LABS: Vancomycin Trough 7.6 ug/mL (10.0-20.0)
[2021-07-04 14:36] VITALS: BP 122/52; PULSE 96; RESP 18; TEMP 36.4; O2SAT 100
--- NOTE | 2021-07-04 16:20 | PC.NURSE ---
Wound culture ordered today by Dr. Fernandez. However, wounds are not draining and unable to be cultured. Spoke to Dr. Fernandez and received orders to cancel wound culture order.
[2021-07-04 16:32] LABS: Glucose Point of Care 168 mg/dl (65-105)
[2021-07-04] MEDS: GABAPENTIN 300 MG CAPSULE PO (20:40)
[2021-07-04] MEDS: rOPINIRole HCL 1 MG TABLET 2 MG PO (20:40)
[2021-07-04 21:39] LABS: Glucose Point of Care 118 mg/dl (65-105)
[2021-07-04 22:00] VITALS: BP 138/58; PULSE 86; RESP 21; TEMP 36.7; O2SAT 100
[2021-07-05 05:49] LABS: Basophils Percent Auto 0.1 % (0.2-1.2); Eosinophils Absolute Auto 0.2 K/mm3 (0-0.3); Eosinophils Percent Auto 1.3 % (0-4.4); Hematocrit 25.8 % (42.0-52.0); Hemoglobin 8.6 g/dL (14.0-18.0); Immature Granulocyte Percent A 1.3 % (0-0.5); Lymphocytes Absolute Auto 2.14 K/mm3 (0.9-3.2); Lymphocytes Percent Auto 13.7 % (18.3-44.2); Mean Corpuscular HGB Conc 33.3 g/dl (32-36); Mean Corpuscular Hemoglobin 30.4 pg (26-34); Mean Corpuscular Volume 91.2 fl (80-100); Mean Platelet Volume 9.6 fl (7.4-10.4); Monocytes Absolute Auto 1.1 K/mm3 (0.1-0.6); Monocytes Percent Auto 6.7 % (2.6-8.5); Neutrophils Percent Auto 76.9 % (45.5-73.1); Platelet Count Result 278 k/mm3 (150-375); Red Blood Count 2.83 M/mm3 (4.6-6.20); Red Cell Distribution Width 13.2 % (11.5-14.5); White Blood Count 15.6 K/mm3 (4.5-10.0)
[2021-07-05 06:00] VITALS: BP 104/55; PULSE 66; RESP 20; TEMP 36.6; O2SAT 98
[2021-07-05 07:47] LABS: Glucose Point of Care 113 mg/dl (65-105)
[2021-07-05] MEDS: CLOPIDOGREL BISULFATE 75 MG TABLET PO (10:04)
[2021-07-05] MEDS: metFORMIN HCL 500 MG TABLET PO (10:04)
[2021-07-05] MEDS: ATORVASTATIN 20 MG TABLET PO (10:04)
[2021-07-05] MEDS: DOCUSATE SODIUM 100 MG CAPSULE 200 MG PO (10:04)
[2021-07-05] MEDS: HEPARIN SODIUM 5,000 UNITS/ML VIAL 5000 UNITS SUB-Q ×2 (10:05→20:26)
[2021-07-05] MEDS: MAGNESIUM OXIDE 400 MG TABLET PO (10:05)
[2021-07-05] MEDS: TAMSULOSIN HCL 0.4 MG CAPSULE PO (10:05)
[2021-07-05 11:32] LABS: Glucose Point of Care 161 mg/dl (65-105)
[2021-07-05] MEDS: SODIUM CHLORIDE 0.9% IV 1,000 ML 50 ML IV CONT (14:06)
--- NOTE | 2021-07-05 15:06 | PM.IMPN ---
Progress Note: A&P Assessment and Plan (1) Acute UTI: Code(s): N39.0 - Urinary tract infection, site not specified Status: Acute Assessment and Plan: Patient's urinalysis is very suspicious for UTI and urine culture showed contamination. Patient had been on cefdinir prior to arrival so this could have changed his urine culture results. Patient was started on IV Zosyn and vancomycin for UTI and wounds. Leukocytosis is improving slowly with IV antibiotics, neutrophil count improving. (2) Hemiplegia affecting left nondominant side: Qualifiers: Hemiplegia type: unspecified type Hemiplegia etiology: unspecified etiology Qualified Code(s): G81.94 - Hemiplegia, unspecified affecting left nondominant side Code(s): G81.94 - Hemiplegia, unspecified affecting left nondominant side Status: Acute Assessment and Plan: Bedsore and falling precautions (3) Hypertension: Code(s): I10 - Essential (primary) hypertension Status: Acute Assessment and Plan: Blood pressure was slightly low this morning 104/55. I held his amlodipine and losartan. Will continue monitoring blood pressure overnight. (4) Diabetes: Code(s): E11.9 - Type 2 diabetes mellitus without complications Status: Acute Assessment and Plan: Glucose well controlled here. Continue Sliding scale insulin and monitor glucose closely. Sliding scale insulin. (5) History of stroke: Code(s): Z86.73 - Personal history of transient ischemic attack (TIA), and cerebral infarction without residual deficits Status: Acute Assessment and Plan: Chronic. Falling and bedsore precaution. (6) Skin infection: Code(s): L08.9 - Local infection of the skin and subcutaneous tissue, unspecified Status: Acute Assessment and Plan: On antibiotic. Monitor culture Blood cultures negative. Wound nurses evaluated his wounds and feels there is no infection at this time and most of his skin breakdown to his legs and groin is from incontinence and dermatitis irritation. They recommended a cream to be applied to these areas. Time Spent With Patient Time with patient: 25 - 35 minutes Subjective Date/time seen: 07/05/21 15:06 Interval history: Date of service 07/05/20: Patient reports feeling as if he still has a urinary tract infection based on some ?groin pain?. Denies any fevers, chills. He also reports intermittent dizziness, denies any lightheadedness, dizziness. He is otherwise resting comfortably in the have any complaints at this time. Denies any chest pain, shortness of breath, cough, nausea, vomiting, abdominal pain, leg swelling, calf pain, or any other symptoms at this time. Review of Systems Review of Systems: All systems reviewed & are unremarkable except as noted in HPI and below (the history and physical examination.) Exam Narrative: General: 71-year-old man laying in bed on his left side. Appears comfortable. In no acute distress. Skin: Multiple open wounds noted to legs and scrotum. No signs of erythema, warmth, drainage or infection. No jaundice or cyanosis. Good skin turgor. Neck: Full range of motion. Supple. Respiratory: Lungs are clear to auscultation bilaterally. No bony chest wall tenderness. Cardiovascular: The heart has a regular rate and rhythm without murmur. Lower extremities: Bilateral legs with muscle wasting, 1 right leg is contracted and left leg is 90% contracted. No lower extremity edema. Distal pulses are easily palpated. No calf tenderness to palpation. Gastrointestinal: The abdomen is soft, nontender and nondistended with active bowel sounds. Psychiatric: Jonn
[2021-07-05] MEDS: ACETAMINOPHEN 325 MG TABLET 650 MG PO ×2 (15:27→20:42)
[2021-07-05] MEDS: CALCIUM CARBONATE (TUMS) 500 MG (200 MG ELEMENTAL) PO ×2 (15:27→20:42)
[2021-07-05 15:37] VITALS: BP 96/44; PULSE 84; RESP 18; TEMP 36.9; O2SAT 98
[2021-07-05 16:38] LABS: Glucose Point of Care 196 mg/dl (65-105)
[2021-07-05 20:00] VITALS: PULSE 84; RESP 18; O2SAT 98
[2021-07-05] MEDS: GABAPENTIN 300 MG CAPSULE PO (20:26)
[2021-07-05] MEDS: rOPINIRole HCL 1 MG TABLET 2 MG PO (20:27)
[2021-07-05] MEDS: ZOLPIDEM TARTRATE (*CRX) 5 MG TABLET PO (20:27)
[2021-07-05] MEDS: MECLIZINE HCL 25 MG TABLET PO (20:33)
[2021-07-05 21:26] LABS: Glucose Point of Care 226 mg/dl (65-105)
[2021-07-05 22:00] VITALS: BP 100/50; PULSE 88; RESP 18; TEMP 36.6; O2SAT 97
[2021-07-06 03:16] LABS: Basophils Percent Auto 0.2 % (0.2-1.2); Eosinophils Absolute Auto 0.3 K/mm3 (0-0.3); Eosinophils Percent Auto 1.9 % (0-4.4); Hematocrit 32.5 % (42.0-52.0); Immature Granulocyte Absolute 0.23 K/mm3 (0.00-0.031); Immature Granulocyte Percent A 1.5 % (0-0.5); Lymphocytes Absolute Auto 2.53 K/mm3 (0.9-3.2); Lymphocytes Percent Auto 16.2 % (18.3-44.2); Mean Corpuscular HGB Conc 33.8 g/dl (32-36); Mean Corpuscular Hemoglobin 31.4 pg (26-34); Mean Corpuscular Volume 92.9 fl (80-100); Mean Platelet Volume 9.1 fl (7.4-10.4); Monocytes Absolute Auto 1.2 K/mm3 (0.1-0.6); Monocytes Percent Auto 7.9 % (2.6-8.5); Neutrophils Absolute Auto 11.3 K/mm3 (1.3-6.7); Neutrophils Percent Auto 72.3 % (45.5-73.1); Platelet Count Result 292 k/mm3 (150-375); Red Cell Distribution Width 13.3 % (11.5-14.5); White Blood Count 15.6 K/mm3 (4.5-10.0)
[2021-07-06 03:25] LABS: Anion Gap 3 mmol/L (8-16); Blood Urea Nitrogen 9 mg/dL (9-20); Calcium 7.6 mg/dL (8.4-10.2); Carbon Dioxide 26 mmol/L (22-30); Chloride 103 mmol/L (98-107); Estimated CRCL calculation 85 ml/min; Estimated Glomerular Filt Rate > 60; Glucose 133 mg/dL (65-110); Potassium 3.7 mmol/L (3.4-5.0); Sodium 132 mmol/L (137-145)
[2021-07-06 03:49] LABS: Vancomycin Trough 10.3 ug/mL (10.0-20.0)
[2021-07-06 06:00] VITALS: BP 148/88; PULSE 93; RESP 21; TEMP 36.8; O2SAT 100
[2021-07-06 07:54] LABS: Glucose Point of Care 116 mg/dl (65-105)
[2021-07-06] MEDS: metFORMIN HCL 500 MG TABLET PO (08:36)
[2021-07-06] MEDS: DOCUSATE SODIUM 100 MG CAPSULE 200 MG PO ×2 (08:36→20:24)
[2021-07-06] MEDS: ATORVASTATIN 20 MG TABLET PO (08:36)
[2021-07-06] MEDS: CLOPIDOGREL BISULFATE 75 MG TABLET PO (08:36)
[2021-07-06] MEDS: HEPARIN SODIUM 5,000 UNITS/ML VIAL 5000 UNITS SUB-Q ×2 (08:36→20:24)
[2021-07-06] MEDS: MAGNESIUM OXIDE 400 MG TABLET PO (08:37)
[2021-07-06] MEDS: TAMSULOSIN HCL 0.4 MG CAPSULE PO (08:37)
[2021-07-06 10:06] LABS: CRP 1.8 mg/dL (<1.0)
[2021-07-06 12:12] LABS: Glucose Point of Care 155 mg/dl (65-105)
--- NOTE | 2021-07-06 12:56 | PCNFU ---
Nutrition Follow-Up Complete: Inadequate oral intake related to failure to thrive as evidenced by reported decreased appetite and unintentional wt loss Goal: Meet nutritional needs Patient has limited progress towards goal. We will continue current goal. Pt current nutrition is Regular with Ensure Compact BID and Dagoberto BID. Last recorded weight is 51.5 kg, no new weight to report. Recommend: new weight. Bowel Motility:+BM reported 1/3 Labs Reviewed:Glu 133, Na 132, Hct 32.5,Hgb 11.0,Cr 0.5 Meds Noted:Vancomycin, Zosyn, Flomax, Glucophage, Heparin, Plavix. Skin:Deep Tissue-hip, Bilateral Buttock-maceration, unstageable-legs, maceration-scrotum Additional Notes: Patient remains on a regular diet with Dagoberto BID and Ensure Compact BID. Oral Intake has been poor-10-20% of meals. Patient asked for double portions for lunch today of spaghetti/meatballs. He also preferred the ensure compact-chocolate. Diet office is aware of the requests. PO intake continues to be encouraged. Monitoring: Will follow and monitor labs, wt, medication, and intake every 5 days
[2021-07-06 14:00] VITALS: BP 114/56; PULSE 100; RESP 20; TEMP 36.7; O2SAT 97
--- NOTE | 2021-07-06 15:23 | PM.IMPN ---
Progress Note: A&P Assessment and Plan (1) Acute UTI: Code(s): N39.0 - Urinary tract infection, site not specified Status: Acute Assessment and Plan: Patient's urinalysis is very suspicious for UTI and urine culture showed contamination. Patient had been on cefdinir prior to arrival so this could have changed his urine culture results. Patient was started on IV Zosyn and vancomycin #6 for UTI and wounds. Leukocytosis is improving slowly with IV antibiotics, neutrophil count normalized. Patient was reporting groin pain so we did a bladder scan which showed he was retaining 600 cc of urine in his bladder. This is something we have been monitoring during this admission and something that the urologist Dr. Angulo mentioned during his consultation. The patient is adamant that he does not want a Pedraza catheter. I did start the patient on tamsulosin for the last few days and he still retaining 600 cc an this is most likely the cause of his groin discomfort and urinary tract infection. I talked to patient and length about placing a Pedraza catheter and he does not want 1 at this time. Will have him follow-up with the urologist as an outpatient for further workup and evaluation of abnormal appearance of the bladder on CT scan for a cystoscopy and further workup and evaluation of his urinary retention. We are working on SNF placement for the patient and care coordination is having trouble with his new insurance. Hopefully were able to discharge in the next few days once we have insurance authorization accepting facility. (2) Hemiplegia affecting left nondominant side: Qualifiers: Hemiplegia etiology: unspecified etiology Hemiplegia type: unspecified type Qualified Code(s): G81.94 - Hemiplegia, unspecified affecting left nondominant side Code(s): G81.94 - Hemiplegia, unspecified affecting left nondominant side Status: Acute Assessment and Plan: Bedsore and falling precautions (3) Hypertension: Code(s): I10 - Essential (primary) hypertension Status: Acute Assessment and Plan: Blood pressure was normal 114/56. I held his amlodipine and losartan. Will continue monitoring blood pressure overnight. (4) Diabetes: Code(s): E11.9 - Type 2 diabetes mellitus without complications Status: Acute Assessment and Plan: Glucose well controlled here. Continue Sliding scale insulin and monitor glucose closely. Sliding scale insulin. (5) History of stroke: Code(s): Z86.73 - Personal history of transient ischemic attack (TIA), and cerebral infarction without residual deficits Status: Acute Assessment and Plan: Chronic. Falling and bedsore precaution. (6) Skin infection: Code(s): L08.9 - Local infection of the skin and subcutaneous tissue, unspecified Status: Acute Assessment and Plan: On antibiotic. Monitor culture Blood cultures negative. Wound nurses evaluated his wounds and feels there is no infection at this time and most of his skin breakdown to his legs and groin is from incontinence and dermatitis irritation. They recommended a cream to be applied to these areas. Time Spent With Patient Time with patient: 25 - 35 minutes Subjective Date/time seen: 07/06/21 15:23 Interval history: Date of service 07/06/21: Patient is not very happy with his lunch today. He feels some mild discomfort to his groin area. States he does not have any urinary symptoms at this time. Denies any fevers, chills, nausea, vomiting, abdominal pain, chest pain, shortness of breath, cough, leg swelling, calf pain, or any other symptoms at this time. Review of Systems R
[2021-07-06 16:26] LABS: Glucose Point of Care 196 mg/dl (65-105)
[2021-07-06] MEDS: CALCIUM CARBONATE (TUMS) 500 MG (200 MG ELEMENTAL) PO (17:00)
[2021-07-06] MEDS: MECLIZINE HCL 25 MG TABLET PO ×2 (17:00→20:25)
[2021-07-06] MEDS: SODIUM CHLORIDE 0.9% IV 1,000 ML 50 ML IV CONT (17:00)
[2021-07-06] MEDS: ACETAMINOPHEN 325 MG TABLET 650 MG PO (17:00)
[2021-07-06 20:00] VITALS: PULSE 100; RESP 18; O2SAT 98
[2021-07-06] MEDS: GABAPENTIN 300 MG CAPSULE PO (20:24)
[2021-07-06] MEDS: rOPINIRole HCL 1 MG TABLET 2 MG PO (20:24)
[2021-07-06] MEDS: ZOLPIDEM TARTRATE (*CRX) 5 MG TABLET PO (20:25)
[2021-07-06 21:16] VITALS: BP 123/61; PULSE 100; RESP 18; TEMP 36.8; O2SAT 98
[2021-07-06 21:41] LABS: Glucose Point of Care 226 mg/dl (65-105)
[2021-07-07 06:57] VITALS: BP 127/64; PULSE 99; RESP 18; TEMP 37.1; O2SAT 96
[2021-07-07 07:44] LABS: Glucose Point of Care 117 mg/dl (65-105)
[2021-07-07 08:31] LABS: Basophils Percent Auto 0.2 % (0.2-1.2); Eosinophils Absolute Auto 0.4 K/mm3 (0-0.3); Eosinophils Percent Auto 2.3 % (0-4.4); Hematocrit 28.1 % (42.0-52.0); Hemoglobin 9.4 g/dL (14.0-18.0); Immature Granulocyte Absolute 0.26 K/mm3 (0.00-0.031); Immature Granulocyte Percent A 1.7 % (0-0.5); Lymphocytes Percent Auto 18.2 % (18.3-44.2); Mean Corpuscular HGB Conc 33.5 g/dl (32-36); Mean Corpuscular Hemoglobin 31.2 pg (26-34); Mean Corpuscular Volume 93.4 fl (80-100); Mean Platelet Volume 9.4 fl (7.4-10.4); Monocytes Absolute Auto 1.1 K/mm3 (0.1-0.6); Neutrophils Absolute Auto 10.8 K/mm3 (1.3-6.7); Neutrophils Percent Auto 70.6 % (45.5-73.1); Platelet Count Result 331 k/mm3 (150-375); Red Blood Count 3.01 M/mm3 (4.6-6.20); Red Cell Distribution Width 13.7 % (11.5-14.5); White Blood Count 15.4 K/mm3 (4.5-10.0)
[2021-07-07 08:50] LABS: Anion Gap 0 mmol/L (8-16); Blood Urea Nitrogen 8 mg/dL (9-20); Calcium 7.3 mg/dL (8.4-10.2); Carbon Dioxide 28 mmol/L (22-30); Chloride 102 mmol/L (98-107); Estimated CRCL calculation 72 ml/min; Estimated Glomerular Filt Rate > 60; Glucose 113 mg/dL (65-110); Potassium 3.9 mmol/L (3.4-5.0); Sodium 130 mmol/L (137-145)
[2021-07-07] MEDS: ATORVASTATIN 20 MG TABLET PO (09:21)
[2021-07-07] MEDS: DOCUSATE SODIUM 100 MG CAPSULE 200 MG PO (09:21)
[2021-07-07] MEDS: CLOPIDOGREL BISULFATE 75 MG TABLET PO (09:21)
[2021-07-07] MEDS: ACETAMINOPHEN 325 MG TABLET 650 MG PO ×2 (09:22→20:42)
[2021-07-07] MEDS: metFORMIN HCL 500 MG TABLET PO (09:22)
[2021-07-07] MEDS: TAMSULOSIN HCL 0.4 MG CAPSULE PO (09:22)
[2021-07-07] MEDS: MAGNESIUM OXIDE 400 MG TABLET PO (09:22)
[2021-07-07] MEDS: HEPARIN SODIUM 5,000 UNITS/ML VIAL 5000 UNITS SUB-Q ×2 (09:23→20:42)
[2021-07-07] MEDS: CALCIUM CARBONATE (TUMS) 500 MG (200 MG ELEMENTAL) PO ×2 (09:23→20:43)
[2021-07-07] MEDS: MECLIZINE HCL 25 MG TABLET PO ×2 (09:23→20:43)
[2021-07-07 11:36] LABS: Glucose Point of Care 150 mg/dl (65-105)
--- NOTE | 2021-07-07 13:27 | PM.IMPN ---
Progress Note: A&P Assessment and Plan (1) Acute UTI: Code(s): N39.0 - Urinary tract infection, site not specified Status: Acute Assessment and Plan: Patient's urinalysis is very suspicious for UTI and urine culture showed contamination. Patient had been on cefdinir prior to arrival so this could have changed his urine culture results. Patient was started on IV Zosyn and vancomycin #7 for UTI and wounds. Leukocytosis is improving slowly with IV antibiotics, neutrophil count normalized. Patient was reporting groin pain so we did a bladder scan which showed he was retaining 600 cc of urine in his bladder. This is something we have been monitoring during this admission and something that the urologist Dr. Angulo mentioned during his consultation. The patient is adamant that he does not want a Pedraza catheter. I did start the patient on tamsulosin for the last few days and he still retaining 600 cc an this is most likely the cause of his groin discomfort and urinary tract infection. I talked to patient and length about placing a Pedraza catheter and he does not want 1 at this time. Will have him follow-up with the urologist as an outpatient for further workup and evaluation of abnormal appearance of the bladder on CT scan for a cystoscopy and further workup and evaluation of his urinary retention. We are working on SNF placement for the patient and care coordination is having trouble with his new insurance. Hopefully were able to discharge in the next few days once we have insurance authorization accepting facility. (2) Hemiplegia affecting left nondominant side: Qualifiers: Hemiplegia type: unspecified type Hemiplegia etiology: unspecified etiology Qualified Code(s): G81.94 - Hemiplegia, unspecified affecting left nondominant side Code(s): G81.94 - Hemiplegia, unspecified affecting left nondominant side Status: Acute Assessment and Plan: Bedsore and falling precautions (3) Hypertension: Code(s): I10 - Essential (primary) hypertension Status: Acute Assessment and Plan: Blood pressure was normal 127/64. I held his amlodipine and losartan. Will continue monitoring blood pressure overnight. (4) Diabetes: Code(s): E11.9 - Type 2 diabetes mellitus without complications Status: Acute Assessment and Plan: Glucose well controlled here. Continue Sliding scale insulin and monitor glucose closely. Sliding scale insulin. (5) History of stroke: Code(s): Z86.73 - Personal history of transient ischemic attack (TIA), and cerebral infarction without residual deficits Status: Acute Assessment and Plan: Chronic. Falling and bedsore precaution. (6) Skin infection: Code(s): L08.9 - Local infection of the skin and subcutaneous tissue, unspecified Status: Acute Assessment and Plan: On antibiotic. Monitor culture Blood cultures negative. Wound nurses evaluated his wounds and feels there is no infection at this time and most of his skin breakdown to his legs and groin is from incontinence and dermatitis irritation. They recommended a cream to be applied to these areas. Additional Plan Time Spent With Patient Time with patient: 25 - 35 minutes Subjective Date/time seen: 07/07/21 13:27 Interval history: Date of service 07/07/21: Patient reports feeling mediocre today. He states he would like a meclizine pill, Tums and Tylenol if he can have it. Has some leg pain to his left side which he states is chronic. Denies any fever, chills, nausea, vomiting abdominal pain, chest pain, shortness of breath, cough, leg swelling, or any other symptoms at this
[2021-07-07 14:00] VITALS: BP 116/60; PULSE 101; RESP 16; TEMP 36.4; O2SAT 99
[2021-07-07 16:40] LABS: Glucose Point of Care 167 mg/dl (65-105)
[2021-07-07 19:38] VITALS: BP 137/59; PULSE 108; RESP 18; TEMP 37.1; O2SAT 96
[2021-07-07 20:00] VITALS: PULSE 108; RESP 18; O2SAT 96
[2021-07-07] MEDS: ZOLPIDEM TARTRATE (*CRX) 5 MG TABLET PO (20:42)
[2021-07-07] MEDS: GABAPENTIN 300 MG CAPSULE PO (20:42)
[2021-07-07] MEDS: rOPINIRole HCL 1 MG TABLET 2 MG PO (20:43)
[2021-07-07 22:05] LABS: Glucose Point of Care 215 mg/dl (65-105)
[2021-07-08 04:13] VITALS: BP 152/97; PULSE 99; RESP 18; TEMP 36.4; O2SAT 97
[2021-07-08 07:57] LABS: Hematocrit 29.1 % (42.0-52.0); Hemoglobin 9.6 g/dL (14.0-18.0); Mean Corpuscular Hemoglobin 30.8 pg (26-34); Mean Corpuscular Volume 93.3 fl (80-100); Mean Platelet Volume 8.8 fl (7.4-10.4); Platelet Count Result 367 k/mm3 (150-375); Red Blood Count 3.12 M/mm3 (4.6-6.20); Red Cell Distribution Width 14.2 % (11.5-14.5); White Blood Count 13.7 K/mm3 (4.5-10.0)
[2021-07-08 08:04] LABS: Glucose Point of Care 128 mg/dl (65-105)
[2021-07-08 08:08] LABS: Anion Gap 2 mmol/L (8-16); Blood Urea Nitrogen 7 mg/dL (9-20); Calcium 7.6 mg/dL (8.4-10.2); Carbon Dioxide 29 mmol/L (22-30); Chloride 101 mmol/L (98-107); Estimated CRCL calculation 85 ml/min; Estimated Glomerular Filt Rate > 60; Glucose 133 mg/dL (65-110); Potassium 3.9 mmol/L (3.4-5.0); Sodium 132 mmol/L (137-145)
[2021-07-08] MEDS: ATORVASTATIN 20 MG TABLET PO (09:36)
[2021-07-08] MEDS: CLOPIDOGREL BISULFATE 75 MG TABLET PO (09:36)
[2021-07-08] MEDS: HEPARIN SODIUM 5,000 UNITS/ML VIAL 5000 UNITS SUB-Q (09:36)
[2021-07-08] MEDS: DOCUSATE SODIUM 100 MG CAPSULE 200 MG PO (09:36)
[2021-07-08] MEDS: TAMSULOSIN HCL 0.4 MG CAPSULE PO (09:36)
[2021-07-08] MEDS: MAGNESIUM OXIDE 400 MG TABLET PO (09:36)
[2021-07-08] MEDS: metFORMIN HCL 500 MG TABLET PO (09:36)
[2021-07-08] MEDS: MECLIZINE HCL 25 MG TABLET PO (09:45)
[2021-07-08 11:32] LABS: Glucose Point of Care 141 mg/dl (65-105)
--- NOTE | 2021-07-08 13:06 | PM.DS ---
DS: Admitting Diagnosis Discharge Date 07/08/21 Admitting Diagnosis Fall out of wheelchair DS: Discharge Diagnosis Discharge Diagnosis (1) Acute UTI: Code(s): N39.0 - Urinary tract infection, site not specified Status: Acute Assessment and Plan: Patient is a 71-year-old man with a history of stroke with residual left-sided paralysis, wheelchair-bound, diabetic, hypertension, who recently being discharged from [facility] and staying home alone with caregivers visits was admitted through the emergency with a complaint that patient was found lying down on the floor at home with fecal material and urine spill around him. Initial vitals showed stable blood pressure 132/92, heart rate 100 beats per minute, afebrile, normal oxygenation 100% on room air. Initial labs showed leukocytosis of 23,000, elevated neutrophil count, normal H&H showing dehydration since at baseline he is anemic. Initial labs showed normal creatinine 0.7, elevated BUN 49, elevated lactic acid at 3.3. Elevated LFTs with alk-phos 143, AST 81, ALT 66. Elevated CRP at 14. Normal lipase. Urinalysis showing cloudy urine, 2+ leukocyte esterase, greater than 75 WBCs and urine WBC clumps present. Chest x-ray showed no acute cardiopulmonary disease. CT abdomen pelvis showed no acute findnigs. Eccentric wall thickening of the left anterolateral bladder wall concerning for urothelial carcinoma. Nonemergent urologic evaluation is recommended. Patient was admitted into the hospital eating criteria for sepsis given elevated lactic acid, leukocytosis, tachycardic heart rate, in the setting of a urinary tract infection. Patient's urinalysis is very suspicious for UTI and urine culture showed contamination. Patient had been on cefdinir prior to arrival so this could have changed his urine culture results. Patient was started on IV Zosyn and vancomycin #8 for UTI and wounds, Blood cultures negative to date. Leukocytosis is improving slowly with IV antibiotics, neutrophil count normalized. Patient was reporting groin pain so we did a bladder scan which showed he was retaining 600 cc of urine in his bladder. This is something we have been monitoring during this admission and something that the urologist Dr. Angulo mentioned during his consultation. The patient is adamant that he does not want a Pedraza catheter. I did start the patient on tamsulosin for the last few days and he still retaining 600 cc an this is most likely the cause of his groin discomfort and urinary tract infection. I talked to patient and length about placing a Pedraza catheter and he does not want 1 at this time. Will have him follow-up with the urologist as an outpatient for further workup and evaluation of abnormal appearance of the bladder on CT scan for a cystoscopy and further workup and evaluation of his urinary retention. Patient stable at this time to go to an SNF facility for further therapy. He was discharged on 2 more days of oral Bactrim and Augmentin along with a probiotic to prevent diarrhea associated with antibiotic use. Patient understands and agrees the plan all questions answered. (2) Sepsis: Qualifiers: Sepsis acute organ dysfunction status: unspecified Sepsis type: sepsis due to unspecified organism Qualified Code(s): A41.9 - Sepsis, unspecified organism Code(s): A41.9 - Sepsis, unspecified organism Status: Acute (3) Hemiplegia affecting left nondominant side: Qualifiers: Hemiplegia etiology: unspecified etiology Hemiplegia type: unspecified type Qualified Code(s): G81.94 - Hemiplegia, unspecified affecting left nondominant side Code(s): G81.94 - Hemiplegia, unspecified affecting left nondominant side Status: Acute Assessment and Plan: Bedsore and falling precautions (4) Hypertension: Code(s): I10 - Essential (prim
[2021-07-08 14:00] VITALS: BP 102/45; PULSE 97; RESP 18; TEMP 36.6; O2SAT 98
[2021-07-08 15:40] LABS: EDCOVIDSCREEN Negative (Negative)
[2021-07-08 16:27] LABS: Glucose Point of Care 185 mg/dl (65-105)
[2021-07-08] MEDS: ACETAMINOPHEN 325 MG TABLET 650 MG PO (16:32)
[2021-07-08] MEDS: CALCIUM CARBONATE (TUMS) 500 MG (200 MG ELEMENTAL) PO (16:32)
== END 2021-07-08 17:05 | DRG 690 ==
LOC: ANHED 23:07 → ANH2MED 07-04 13:36
PROVIDERS: Family Medicine; Internal Medicine; Admitting Provider Internal Medicine; Emergency Provider Emergency Medicine; PCP Emergency Medicine; Visit Provider Physician Assistant
DX: N39.0 Urinary tract infection, site not specified (principal); I69.354 Hemiplegia and hemiparesis following cerebral infarction affecting left non-dominant side; R64 Cachexia; Z68.1 Body mass index [BMI] 19.9 or less, adult; Z20.822 Contact with and (suspected) exposure to COVID-19; E11.9 Type 2 diabetes mellitus without complications; R62.7 Adult failure to thrive; E83.52 Hypercalcemia; H54.8 Legal blindness, as defined in USA; R33.9 Retention of urine, unspecified; N32.89 Other specified disorders of bladder; R32 Unspecified urinary incontinence; L30.9 Dermatitis, unspecified; Z99.3 Dependence on wheelchair
CPT/HCPCS: 36415; 71045; 74177; 80048; 80053; 80202; 81001; 82550; 82948; 83605; 83690; 83735; 84484; 85025; 85027; 85610; 85730; 86140; 87040; 87086; 87088; 87426; 93005; 96361; 96365; 96367; 97163; 97166; 99285; A9270; C9803; J1644; J2543; J3370; J7030; Q9967